=== PATIENT | female | born 1995 | race African-American/Black ===

== ENCOUNTER → 2023-09-04 08:24 | Outpatient (BNVA) | payer OTHER, SELFPAY | PROVIDERS: PCP Nurse Practitioner Family; Visit Provider Physician Assistant Surgical ==

== ENCOUNTER 2023-10-06 08:53 | Outpatient (AMB) | payer OTHER, SELFPAY ==
--- NOTE | 2023-10-05 20:25 | MHC.OFFVISWM ---
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 An additional 15 minutes were used at a different part of the day to complete this note and review patient's records. ?I spent 45 minutes speaking with the patient on the phone plus an additional 15 minutes reviewing and updating records for a total of 60 minutes HPI Comments History of Present Illness Details Previous weight loss efforts: Keto diet, Topamax Wakes up: 8.30am, Sleeps: 10pm Breakfast: 10.30am (oatmeal, eggs) Lunch: 12pm (fast food, or sandwich) Dinner: 6-7pm (protein, rice, beans) Snacks: 3pm (fruit or nuts) Exercise: Has a treadmill Fluids: Coffee: none, tea: green tea: one cup per day (plain), soda: none, juice: none, ETOH: none PFSH Medical History (Updated 10/06/23 @ 12:35 by Fabian Milton MD) Migraines Morbid obesity Physical Exam Vital Signs: BMI result Body Mass Index 50.4 Assessment & Plan Assessment & Plan (1) Morbid obesity: Code(s): E66.01 - Morbid (severe) obesity due to excess calories Plan: 1.? Plan for lap sleeve gastrectomy. If diaphragmatic or ventral hernias are present at time of surgery, these will be repaired laparoscopically as well. Risks and complications were discussed in detail including possible conversion to an open procedure, anastomotic leak, bleeding requiring transfusion, small bowel obstruction, , DVT and pulmonary embolism, cardiac, or pulmonary complications, as terminal operations manager complications such as anastomotic ulcer, insufficient weight loss and vitamin deficiencies. I emphasized the importance of close follow-up, adherence to instructions and good communication. 2. Nutritional counseling. Start with 2 CELEBRATE REBUILD protein (buy at [facility]) shakes (ONE scoop EACH in 8oz low fat unsweetened almond milk each) at 9am-11am and 12pm-2pm, 1 protein bar (CELEBRATE protein bars, buy at [facility] [employer] [facility]) at 3pm-5pm, dinner at 6pm (12 forks of protein and 12 forks of salad/vegetables) AND one more protein bar after dinner at 8pm-10pm. So you do 2 protein shakes, 2 protein bars and one meal per day. Meal to include lean meat (beef, fish, pork, turkey, chicken), or upper sorbian yogurt, or egg whites, or beans with a salad with olive oil and fruits (berries, pears, apples, kiwi). Avoid salt, breads, potatoes, rice, pasta, desserts. 3. Each shake would be drunk slowly, like coffee in a period of 2 hours. 4. Cut each bar in 4 pieces and eat each piece in 30min ?to make each bar last 2 hours. 5. I emphasized the importance of measuring accurately the food portion and measure it when serving the food in plate 6. The meal portions include 12 full-size forks of meat and 12 full-size forks of salad. You always eat the meat portion but you can replace up to 6 forks for salad/vegetables with rice, potatoes or pasta, or a fruit ?if you like. The less you do it the better weight loss will be. 7. One full-size fork is what it can be scooped on the fork without falling aside and not what can be bit with the fork. Use regular forks like those you find in a typical restaurant. 8.? Please send me weight measurements as soon as possible and then once a week. Always include your diet and exercise plan. 9. Start the home treadmill at a speed of 3.8. Goal is to burn 2000 calories per week on exercise, which means either 300 calories daily, or 400 calories 5 days per week, or 500 calories 4 days per week, or 650 calories 3 days per week. 10. Alternatively if you do the treadmill at the Gym, please start the treadmill with an incline of 2.0 and speed of 3.0. Increase incline by 1 every 3 min to a max incline of 8.0, stay 3min at 8.0 and then return to 2.0 and repeat same steps until calorie goal is met. Goal is to burn 2000 calories per week on exercise, which means either 300 calories daily, or 400 calories 5 days per week, or 500 calories 4 days per week, or 650 calories 3 days per week. 11.?It is important of avoiding and for at least 18 months postoperatively and has been discussed at the infosession. 12. Goal is to lose at least 1.5-2lbs per week 13. Goal to lose 10% of your weight before surgery, which is about 34lbs. Ultimate weight goal: 307lbs before surgery 14. Please follow the diet plan exactly without any change. If you don't like something about the plan or you feel hungry you need to communicate with me so I can help you revise the plan. You should not change the plan yourself. (2) Migraines: Code(s): G43.909 - Migraine, unspecified, not intractable, without status migrainosus Orders: Orders Lipid Panel 10/05/23 E66. - Morbid (severe) obesity due to excess calories Vitamin B12 and Folate 10/05/23 E66.01 - Morbid (severe) obesity due to excess calories Zinc 10/05/23 E66.01 - Morbid (severe) obesity due to excess calories Vitamin A 10/05/23 E66.01 - Morbid (severe) obesity due to excess calories C Reactive Protein 10/05/23 E66.01 - Morbid (severe) obesity due to excess calories Ferritin 10/05/23 E66.01 - Morbid (severe) obesity due to excess calories PTHI 10/05/23 E66.01 - Morbid (severe) obesity due to excess calories TSH reflex Free T4 10/05/23 E66.01 - Morbid (severe) obesity due to excess calories Vitamin D 25-OH Total 10/05/23 E66.01 - Morbid (severe) obesity due to excess calories Hemoglobin A1c 10/05/23 E66.01 - Morbid (severe) obesity due to excess calories US abdomen comp w elastography 10/05/23 E66.01 - Morbid (severe) obesity due to excess calories XR chest 2V 10/05/23 E66.01 - Morbid (severe) obesity due to excess calories FL upper GI w air 10/05/23 E66.01 - Morbid (severe) obesity due to excess calories Insulin 10/05/23 E66.01 - Morbid (severe) obesity due to excess calories IRON PROFILE 10/05/23 E66.01 - Morbid (severe) obesity due to excess calories Complete Blood Count Auto Diff 10/05/23 E66.01 - Morbid (severe) obesity due to excess calories Comprehensive Met. Panel 10/05/23 E66.01 - Morbid (severe) obesity due to excess calories Vitamin B1 10/05/23 E66.01 - Morbid (severe) obesity due to excess calories H Pylori Breath Test 10/05/23 E66.01 - Morbid (severe) obesity due to excess calories ECG 12 lead EKG 10/05/23 E66.01 - Morbid (severe) obesity due to excess calories Referrals Nutrition/Dietitian Referral E66.01 - Morbid (severe) obesity due to excess calories Behavioral Health Referral E66.01 - Morbid (severe) obesity due to excess calories Telehealth Telehealth Location of provider rendering services: practice address Location of patient: address on file Patient Identification confirmed using: Name, : Yes Telehealth method: voice only Patient verbally consented to treatment: Yes Patient verbally consented to billing insurance company: Yes Patient informed of any privacy concerns related to visit: Yes Minutes spent on Phone/Video with Pt.: 60 Coding Level of Care Code Tele New Pt Level 5 (08338) Diagnoses Morbid obesity E66.01 Migraines G43.909 Time Spent (min) 60
[2023-10-05 20:26] VITALS: BMI 50.4
[2023-10-05 20:32] VITALS: BMI 50.4
--- OUTSIDE RECORDS SUMMARY | 2023-10-06 08:57 | XMS_ITS | Continuity of Care Document ---
Author Name Unknown Organization [facility] Adult Address [address] [place] [address]- Care Team Providers Care Merchandise Processor Name Role Phone Roc Lincoln NP Primary Care Physician [facility]counter [facility] Date(s): 06/26/21 - 10/24/21 [facility] Adult [address] [place] [id number] Attending Physician: Roc Lincoln NP Allergies, Adverse Reactions, Alerts No Known Medication Allergies Immunizations Given and Recorded Vaccine Date Status Refusal Reason influenza virus vaccine, inactivated 12/26/18 Isidro rded tetanus/diphtheria/pertussis, acel(Tdap) 03/28/17 Given Measles/Mumps/Rubella Virus Vaccine 12/19/15 Recor ded Hepatitis B Vaccine (old term) 12/19/15 Recorded Problem List Condition Effective Dates Status Health Status Inform ant Impaired glucose tolerance(Confirmed) Active Morbid obesity with BMI of 4 0.0-44.9, adult(Confirmed) Active Obesity, unspecified(Confirmed) Active Prediabetes(Confirmed) Active Social History Social History Type Response Smoking Status Never smoker entered on: 03/27/16 Sex
--- OUTSIDE RECORDS SUMMARY | 2023-10-06 08:57 | XMS_ITS | Continuity of Care Document ---
Author Name Unknown Organization [facility] Adult Address [address] [place] [address]- Care Team Providers Care Tax Credit Leasing Consultant Name Role Phone Latonia JAQUEZ, Roc Sosa Primary Care Physician [facility] Date(s): 07/26/21 - 08/25/21 [facility] Adult [address] [place] [id number] Attending Physician: Von Blake Admitting Physician: Von Blake Referring Physician: AdmtrVon Allergies, Adverse Reactions, Alerts No Known Medication [...]
--- OUTSIDE RECORDS SUMMARY | 2023-10-06 08:57 | XMS_ITS | Continuity of Care Document ---
Author Name Unknown Organization [facility] Adult Address [address] [place] [address]- Care Team Providers Care Beef Cattle Specialist Name Role Phone Roc Lincoln NP Primary Care Physician [phone] [place] [facility] [place]23 - 09/27/23 [facility] Adult [address] [place] [address]- Allergies, Adverse Reactions, Alerts No Known Medication Allergies Immunizations Given and Recorded Vaccine Date Status Refusal Reason SARS-CoV-2 (COVID-19) mRNA-1273 vaccine 08/19/21 R ecorded SARS-CoV-2 (COVID-19) mRNA-1273 vaccine 07/14/21 R ecorded influenza virus vaccine, inactivated 12/26/18 Isidro rded influenza virus vaccine, inactivated 12/11/17 Isidro rded tetanus/diphtheria/pertussis, acel(Tdap) 03/28/17 Given Measles/Mumps/Rubella Virus Vaccine 12/19/15 Recor ded Hepatitis B Vaccine (old term) 12/19/15 Recorded Medications topiramate 50 mg oral tablet 1 tablet = 50 mg, By Mouth, 2 times a day, # 60 tablet, 5 Refills, Maintenance, 09/22/23 11:50:00 EST, Tablet, [id number], Partial fill upon patient request if the prescription is for a schedule II opioid drug., 175, cm, 08/11/23 12:45:00 EDT,... Start Date: 09/22/23 Status: Ordered Problem List Condition Confirmation Course Effective Dates Status Health St atus Informant Impaired glucose tolerance Confirmed Active Morbid obesity with BMI of 40.0-44.9, adult Confirmed Active Obesity, unspecified Confirmed Active Prediabetes Confirmed Active Social History Social History Type Response Smoking Status Never smoker entered on: 03/27/16 Sex Patient Care team information Care Team Personnel Name: Roc Lincoln NP Position: [facility] Associate Professional Member Role: PCP Address: Address: [address] [place] [id number]
--- OUTSIDE RECORDS SUMMARY | 2023-10-06 08:57 | XMS_ITS | Continuity of Care Document ---
Author Name Unknown Organization [facility] Adult Address [address] [place] [address]- Care Team Providers Care Styrene Dehydration Reactor Operator Name Role Phone Latonia JAQUEZ, Roc Sosa Primary Care Physician [facility] Date[facility]s): 09[facility]/21 - 10/24/21 [facility] [address] [place] [id number] Attending Physician: Von Blake Admitting Physician: Von [...]
--- OUTSIDE RECORDS SUMMARY | 2023-10-06 08:57 | XMS_ITS | Continuity of Care Document ---
Author Name Unknown Organization [facility] Adult Address [address] [place] [address]- Care Team Providers Care Sign Poster Name Role Phone Roc Lincoln NP Primary Care Physician Encounter [facility] Date(s): 03/21/21 - 03/28/21 [facility] Adult [address] [place] [id number]- Encounter Diagnosis Annual physical exam(Discharge Diagnosis) - 03/21/21 Morbid obesity with BMI of 40.0-44.9, adult(Discharge Diagnosis) - 03/21/21 Impaired glucose tolerance(Discharge Diagnosis) - 03/21/21 Attending Physician: Roc Lincoln NP Allergies, Adverse Reactions, Alerts No Known Medication Allergies Immunizations Given and Recorded Vaccine Date Status Refusal Reason influenza virus vaccine, inactivated 12/26/18 Isidro rded tetanus/diphtheria/pertussis, acel(Tdap) 03/28/17 Given Measles/Mumps/Rubella Virus Vaccine 12/19/15 Recor ded Hepatitis B Vaccine (old term) 12/19/15 Recorded Medications phentermine 37.5 mg oral tablet 1 tablet = 37.5 mg, By Mouth, Daily in AM, for 30 days, TAKE 1 TABLET BY MOUTH EVERY DAY BEFORE BREAKFAST, # 30 tablet, 0 Refills, Acute 04/20/21 11:26:00 EDT, 03/21/21 11:26:00 EDT, Tablet, [id number], Partial fill upon patient request if the... Start Date: 03/21/21 Stop Date: 04/20/21 Status: Ordered Problem List Condition Effective Dates Status Health Status Inform ant Impaired glucose tolerance(Confirmed) Active Morbid obesity with BMI of 4 0.0-44.9, adult(Confirmed) Active Obesity, unspecified(Confirmed) Active Prediabetes(Confirmed) Active Diagnosis Diagnosis Type Effective Dates Health Status [facility] Service Informant Annual physical exam Discharge Diagnosis 03/21/21 Morbid obesity with BMI of 40.0-44.9, adult Discharge Diagnosis 03/21/21 Impaired glucose tolerance Discharge Diagnosis 03/21/21 Vital Signs Most recent to oldest [Reference Range]: 1 Height 175 cm (03/21/21 10:49 AM) Weight 146.3 kg (03/21/21 10:49 AM) Oxygen Saturation [94-100 %] 100 % (03/21/21 10:49 AM) Pulse Rate [55-90 bpm] 120 bpm *H* (03/21/21 10:49 AM) Body Mass Index [18.5-24.99] 47.77 *>HHI* (03/21/21 10:49 AM) Blood Pressure [90-138/55-84 mm Hg] 129/ 85mm Hg (03/21/21 10:49 AM) Respiratory Rate [16-30 br/min] 18 br/mi n (03/21/21 10:49 AM) Mode of Delivery (Oxygen) Room air (03/21/21 10:49 AM) Blood pressure sites Arm, left (03/21/21 10:49 AM) Weight Obtained Via Standing scale (03/21/21 10:49 AM) Social History Social History Type Response Smoking Status Never smoker entered on: 03/27/16 Sex
--- OUTSIDE RECORDS SUMMARY | 2023-10-06 08:57 | XMS_ITS | Continuity of Care Document ---
Author Name Unknown Organization [facility] Adult Address [address] [phone]- Care Team Providers Care Dredge Mate Name Role Phone Latonia JAQUEZ, Roc Sosa Primary Care Physician [phone] [place] [facility] [place]s): 08/11/23 - 08/18/23 [facility] Adult [address] [place] [address]- Encounter Diagnosis Morbid obesity with BMI of 40.0-44.9, adult(Discharge Diagnosis) - 08/11/23 Attending Physician: Mary Jo Ochoa MD Referring Physician: Roc Lincoln NP Allergies, Adverse Reactions, [...] B Vaccine (old term) 12/19/15 Recorded Medications Wegovy (0.25 mg dose) subcutaneous solution = 0.25 mg, Subcutaneous Injection, Every week, for 4 week(s), in the abdomen, thigh, or upper arm, # 2 mL, 0 Refills, Acute 09/08/23 16:32:00 EDT, 08/11/23 16:32:00 EDT, Solution, [id number], Partial fill upon patient request if the p... Start Date: 08/11/23 Stop Date: 09/08/23 Status: Ordered Problem List Condition Confirmation Course Effective Dates Status Health St atus Informant Impaired glucose tolerance Confirmed Active Morbid obesity with BMI of 40.0-44.9, adult Confirmed Active Obesity, unspecified Confirmed Active Prediabetes Confirmed Active Diagnosis Diagnosis Type Effective Dates Health Status Cl inical Service Informant Morbid obesity with BMI of 40.0-44.9, adult Discharge Diagnosis 08/11/23 Vital Signs Most recent to oldest [Reference Range]: 1 Height 175 cm (08/11/23 12:45 PM) Social History Social History Type Response Smoking Status Never smoker entered on: 03/27/16 Sex Patient Care team information Care Team Personnel Name: Roc Lincoln NP Position: [facility] Associate Professional Member Role: PCP Address: Address: [address] [place] [address] [address] [place], [place] [address]
--- OUTSIDE RECORDS SUMMARY | 2023-10-06 08:57 | XMS_ITS | Continuity of Care Document ---
Author Name Unknown Organization [facility] Adult Address [address] [place] [address]- Care Team Providers Care Digital Account Executive Name Role Phone Roc Lincoln NP Primary Care Physician [phone] [facility]counter [facility] Date(s): 06/29/21 - 08/25/21 [facility] [address] [place] [id number] Attending Physician: Not on Staff, Attending MD Referring Physician: Roc Lincoln NP Allergies, [...]
--- OUTSIDE RECORDS SUMMARY | 2023-10-06 08:57 | XMS_ITS | Continuity of Care Document ---
Author Name Unknown Organization [facility] Adult Address [address] [place] [address]- Care Team Providers Care Electronic Gluer Name Role Phone Roc Lincoln NP Primary Care Physician [phone] Encounter [facility] Date(s): 08/29/23 - 09/28/23 [facility] Adult [address] [place] [address]- Allergies, Adverse Reactions, Alerts No Known Medication [...] Refills, Maintenance, 09/22/23 11:50:00 EST, Tablet, [id number], Partial fill upon patient request if the [...] Team Personnel Name: Roc Lincoln NP Position: [facility] Associate Professional Member Role: PCP Address: Address: [address] [place] [id number]
--- OUTSIDE RECORDS SUMMARY | 2023-10-06 08:57 | XMS_ITS | Continuity of Care Document ---
Author Name Unknown Organization [facility] Adult Address [address] [place] [address]- Care Team Providers Care Type Soldering Machine Tender Name Role Phone Roc Lincoln NP Primary Care Physician [phone] En[facility] Date(s): 08/29/23 - 09/28/23 [facility] Adult [address] [place] [address] Allergies, Adverse Reactions, Alerts No Known Medication [...] Refills, Maintenance, 09/22/23 11:50:00 EST, Tablet, [id number], Partial fill upon patient request if the [...] Team Personnel Name: Roc Lincoln NP Position: [facility] Associate Professional Member Role: PCP Address: Address: [address] [place] [id number]
--- OUTSIDE RECORDS SUMMARY | 2023-10-06 08:57 | XMS_ITS | Continuity of Care Document ---
Author Name Unknown Organization [facility] Adult Address [address] [place] [address]- Care Team Providers Care Parliamentary Archivist Name Role Phone Latonia JAQUEZ, Roc Sosa Primary Care Physician [facility] Date(s): 04/25/21 - 05/25/21 [facility] Adult [address] [place] [id number] Allergies, Adverse Reactions, Alerts No Known [...] BREAKFAST, # 30 tablet, 0 Refills, Acute 05/26/21 9:11:00 EDT, 04/26/21 9:11:00 EDT, Tablet, [id number], Partial fill upon patient request if the p... Start Date: 04/26/21 Stop Date: 05/26/21 Status: Ordered Problem List Condition Effective Dates Status Health Status Inform ant Impaired glucose tolerance(Confirmed) Active Morbid obesity with BMI of 4 0.0-44.9, adult(Confirmed) Active Obesity, unspecified(Confirmed) Active Prediabetes(Confirmed) Active Social History Social History Type Response Smoking Status Never smoker entered on: 03/27/16 Sex
--- OUTSIDE RECORDS SUMMARY | 2023-10-06 08:57 | XMS_ITS | Continuity of Care Document ---
Author Name Unknown Organization [facility] Adult Address [address] [place] [address]- Care Team Providers Care Plastic Surgeon Name Role Phone Latonia JAQUEZ, Roc Sosa Primary Care Physician [phone] Encounter [facility] Date(s): 06/21/21 - 07/21/21 [facility] Adult [address] [place] [id number] Allergies, Adverse Reactions, Alerts No Known Medication [...]
== END 2023-10-06 15:00 | disposition home or self-care (01) ==
LOC: HO.HBS 08:53
PROVIDERS: PCP Nurse Practitioner Family; Visit Provider Surgery
DX: E66.01 Morbid (severe) obesity due to excess calories (principal); Z68.43 Body mass index [BMI] 50.0-59.9, adult; G43.909 Migraine, unspecified, not intractable, without status migrainosus
CPT/HCPCS: 99443

== ENCOUNTER → 2023-10-06 08:53 | Outpatient (BNVA) | payer OTHER, SELFPAY | PROVIDERS: PCP Nurse Practitioner Family; Visit Provider Surgery | DX: E66.01 Morbid (severe) obesity due to excess calories (principal) ==

== ENCOUNTER 2023-10-07 09:23 | Outpatient (REF) | payer OTHER, SELFPAY ==
--- NOTE | ~2023-10-07 | XR_ITS ---
EXAMINATION: XR CHEST 2 VIEWS CLINICAL INFORMATION: Morbid obesity. COMPARISON: None. TECHNIQUE: Frontal and lateral views of the chest were obtained. FINDINGS: The heart, great vessels, pulmonary vasculature and mediastinum are normal. The lungs show no focal infiltrate, effusion or pneumothorax. There is no acute osseous abnormality. XR/XR chest 2V IMPRESSION: No active cardiopulmonary disease.
--- NOTE | 2023-10-07 09:33 | ECG_ITS ---
Test Reason : e66.01 Blood Pressure : / mmHG Vent. Rate : 100 BPM Atrial Rate : 100 BPM P-R Int : 132 ms QRS Dur : 082 ms QT Int : 346 ms P-R-T Axes : 056 060 016 degrees QTc Int : 446 ms Sinus tachycardia Normal ECG No previous ECGs available Referred By: Fabian Milton Electronically Signed By:TITA ZAMARRIPA MD
[2023-10-07 09:47] LABS: MANUAL DIFF FLAG NO
[2023-10-07 10:41] LABS: Basophils Absolute Auto 0.1 X10*3/uL (0.0-0.2); Basophils Percent Auto 0.5 % (0-2); Eosinophils Absolute Auto 0.1 X10*3/uL (0.0-0.4); Eosinophils Percent Auto 0.5 % (0-4); Hematocrit 39.9 % (37.0-47.0); Hemoglobin 13.2 g/dl (12.0-16.0); Imm Gran Abs Auto 0.05 X10*3/uL (0.00-0.03); Imm Gran Pct Auto 0.4 % (0.0-0.4); Lymphocytes Absolute Auto 3.8 X10*3/uL (1.2-4.9); Lymphocytes Percent Auto 29.2 % (20-40); Mean Corpuscular HGB Conc 33.1 g/dl (31.0-35.0); Mean Corpuscular Hemoglobin 27.7 pg (27.0-33.0); Mean Corpuscular Volume 83.8 fL (80.0-98.0); Mean Platelet Volume 10.1 fL (9.4-12.3); Monocytes Absolute Auto 0.8 X10*3/uL (0.1-1.2); Monocytes Percent Auto 5.9 % (2-11); Neutrophils Absolute Auto 8.2 x10*3/uL (2.0-8.3); Neutrophils Percent Auto 63.5 % (45-73); Platelet Count 429 X10*3/uL (160-400); Red Blood Count 4.76 X10*6/uL (4.20-5.50); Red Cell Distribution Width 14.2 % (11.0-16.0); White Blood Count 12.9 X10*3/uL (4.8-10.8)
[2023-10-07 10:47] LABS: Estimated Average Glucose 120 mg/dL; Hemoglobin A1c % 5.8 % (<6.0)
[2023-10-07 11:17] LABS: Alanine Aminotransferase 29 U/L (0-31); Albumin Level 4.4 g/dL (3.5-5.0); Alkaline Phosphatase 64 U/L (39-117); Anion Gap 12 (12-20); Aspartate Amino Transferase 22 U/L (5-31); Bilirubin Total 0.5 mg/dL (0.0-1.0); Blood Urea Nitrogen 7 mg/dL (9-16); C Reactive Protein 0.38 mg/dL (< or = 0.50); Calcium 9.6 mg/dL (8.4-10.2); Carbon Dioxide 26 mmol/L (22-29); Chloride 107 mmol/L (96-108); Cholesterol 120 mg/dL (<200); Estimated Glomerular Filt Rate > 60; Glucose Random 111 mg/dL (60-115); HDL Cholesterol 37 mg/dL (>40); Iron 100 mcg/dL (30-160); LDL Cholesterol Calculated 70 mg/dL (<100); Percent Iron Saturation 32 % (15-50); Potassium 3.9 mmol/L (3.3-5.1); Sodium 141 mmol/L (135-145); Total Iron Binding Capacity 311 mcg/dL (228-428); Total Protein 7.6 g/dL (6.5-8.0); Triglycerides 68 mg/dL (<150); Unsaturated Iron Binding 211 ug/dL
[2023-10-07 11:26] LABS: Ferritin 122 ng/mL (10-122); Insulin 27 uU/mL (2-29); TSH reflex Free T4 0.56 uIU/mL (0.32-4.0); Vitamin D 25-OH Total 35.7 ng/mL (>30)
[2023-10-07 11:35] LABS: Folate 7.2 ng/mL (> or = 4.0); Vitamin B12 1702 pg/mL (200-900)
[2023-10-08 15:54] LABS: Calcium (PTHI) 9.8 mg/dL (8.6-10.2); PTHI 14 pg/mL (16-77)
[2023-10-10 16:57] LABS: Zinc 100 mcg/dL (60-130)
[2023-10-11 15:19] LABS: Vitamin B1 13 nmol/L (8-30)
[2023-10-13 10:28] LABS: Vitamin A 51 mcg/dL (38-98)
== END 2023-10-07 09:24 | disposition home or self-care (01) ==
LOC: HO.XRAY 09:23
PROVIDERS: PCP Nurse Practitioner Family; Visit Provider Surgery
DX: E66.01 Morbid (severe) obesity due to excess calories (principal)
CPT/HCPCS: 36415; 71046; 80053; 80061; 82306; 82607; 82728; 82746; 83036; 83525; 83540; 83970; 84425; 84443; 84590; 84630; 85025; 86140; 93005

== ENCOUNTER 2023-10-20 08:16 | Outpatient (AMB) | payer OTHER, SELFPAY ==
--- NOTE | 2023-10-20 10:52 | A.OFFVIS_ITS ---
Intake VS Expanded 10/20/23 11:06 Height 5 ft 9 in Weight 332 lb 6 oz BMI 49.1 Body Fat % 65.4 Body Fat Mass 217.5 Fat Free Mass 115.2 Visceral Fat Rating 29 Body Water % 23.7 Body Water Mass 78.8 Basal Metabolic Rate/Score 1,511 Intake Visit Reasons: TV Follow Up SWL - 1ST Allergies No Known Allergies Allergy (Verified 10/06/23 12:34) HPI TV Follow Up SWL - 1ST HPI Details Start time: 11.00am, End time: 11.30am ?I spent 25 minutes speaking with the patient on the phone plus an additional 5 minutes reviewing and updating records for a total of 30 minutes HPI Comments History of Present Illness Details Overall weight loss: 8.8lbs, or 2.6% TBWL Is doing 2 Celebrate Rebuild protein shakes (1 scoop each in 8oz almond milk), 2 Celebrate protein bars and one meal Exercise: doing treadmill x3/wk for 450 calories [facility] Medical History (Updated 10/06/23 @ 12:35 by Fabian Milton MD) Migraines Morbid obesity Physical Exam Vital Signs: BMI result Body Mass Index 49.1 Assessment & Plan Assessment & Plan (1) Morbid obesity: Code(s): E66.01 - Morbid (severe) obesity due to excess calories Plan: 1. Continue same nutritional plan of 2 Celebrate Rebuild protein shakes (1 scoop each in 8oz almond milk), 2 Celebrate protein bars and one meal 2. Please make sure you measure the food portions of both the protein and salad portion of your meal 3. Exercise: increase treadmill to daily at a speed of 4mph for 300 calories. Goal is to burn 2000 calories per week on exercise, which means either 300 calories daily, or 400 calories 5 days per week, or 500 calories 4 days per week, or 650 calories 3 days per week. 4. Continue to send me weight measurements weekly on 5. To be scheduled for EGD due to history of GERD. The possibility of biopsies was discussed. Patient needs to avoid use of NSAIDs and aspirin for 1 week prior to EGD. Risks of perforation and? bleeding was discussed with the patient. This will be an outpatient procedure with IV sedation. Telehealth Telehealth Location of provider rendering services: practice address Location of patient: address on file Patient Identification confirmed using: Name, : Yes Telehealth method: voice only Patient verbally consented to treatment: Yes Patient verbally consented to billing insurance company: Yes Patient informed of any privacy concerns related to visit: Yes Minutes spent on Phone/Video with Pt.: 30 Coding Level of Care Code Tele Est Pt Level 4 (83397) Diagnoses Morbid obesity E66.01 Time Spent (min) 30
[2023-10-20 11:06] VITALS: BMI 49.1
== END 2023-10-20 11:48 | disposition home or self-care (01) ==
LOC: HO.HBS 08:16
PROVIDERS: PCP Nurse Practitioner Family; Visit Provider Surgery
DX: E66.01 Morbid (severe) obesity due to excess calories (principal); Z68.42 Body mass index [BMI] 45.0-49.9, adult
CPT/HCPCS: 99443

== ENCOUNTER → 2023-10-20 08:16 | Outpatient (BNVA) | payer OTHER, SELFPAY | PROVIDERS: PCP Nurse Practitioner Family; Visit Provider Surgery ==

== ENCOUNTER 2023-10-27 | Outpatient (REF) | payer OTHER, SELFPAY ==
[2023-10-30 15:28] LABS: H Pylori Breath Test Negative (Negative)
== END 2023-10-27 00:01 | disposition home or self-care (01) ==
LOC: HO.LNP
PROVIDERS: Visit Provider Surgery
DX: E66.01 Morbid (severe) obesity due to excess calories (principal)
CPT/HCPCS: 83013

== ENCOUNTER → 2023-10-27 12:57 | Outpatient (BNVA) | payer OTHER, SELFPAY | PROVIDERS: PCP Nurse Practitioner Family; Visit Provider Physician Assistant Surgical | DX: Z11.0 Encounter for screening for intestinal infectious diseases (principal) | CPT/HCPCS: 99211 ==

== ENCOUNTER 2023-10-28 10:11 | Outpatient (AMB) | payer OTHER, SELFPAY ==
--- NOTE | 2023-10-28 10:06 | MHC.AMNUTRGE ---
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 Identifies triggers as emotional eating, mainly stress. she recognizes the importance of working on problem areas before surgery. Exercise: 3-4x per week for 45 minutes, walking treadmill Jakub classed: completes and reviewed Patient shares she will be traveling to [place] in January, surgeon aware Previous weight loss methods attempted lost 100lbs+ in 6 months. Dietary counseling reduction Who buys your food self Who prepares/cooks your food self Meal frequency regular: breakfast (eggs, feng ), lunch (chicken, salmon rice and beans), dinner (take out) and snacks (fruits, nuts, chocolate ) Lifestyle Eating out 1-3 times/week Food frequency Meats/poultry/fish (protein): daily ( a lot of feng and seafood ), Water: daily, Soda: never, Juice: never and Coffee: daily Diagnosis Nutrition problem #1 overweight/obesity As related to (etiology) #1 excess energy intake and physical inactivity As evidenced by (sign/symptom) #1 high BMI Monitoring/Goals Nutrition problem monitoring total energy intake, level of knowledge/skill, total PRO intake and weight Outcome progress progressing Learning/Education Readiness to learn excellent Stages of change action Educational materials provided Yes Most Recent Diabetes Results: Cholesterol 120 mg/dL (<200) 10/07/23 HDL Cholesterol 37 mg/dL (>40) L 10/07/23 Triglycerides 68 mg/dL (<150) 10/07/23 Creatinine 0.85 mg/dL (0.5-1.4) 10/07/23 Blood Urea Nitrogen 7 mg/dL (9-16) L 10/07/23 Sodium 141 mmol/L (135-145) 10/07/23 Potassium 3.9 mmol/L (3.3-5.1) 10/07/23 Chloride 107 mmol/L (96-108) 10/07/23 Carbon Dioxide 26 mmol/L (22-29) 10/07/23 Calcium 9.6 mg/dL (8.4-10.2) 10/07/23 AST 22 U/L (5-31) 10/07/23 ALT 29 U/L (0-31) 10/07/23 Total Protein 7.6 g/dL (6.5-8.0) 10/07/23 Albumin 4.4 g/dL (3.5-5.0) 10/07/23 [facility] Medical History (Updated 10/06/23 @ 12:35 by Fabian Milton MD) Migraines Morbid obesity Assessment & Plan Assessment & Plan (1) Morbid obesity: Code(s): E66.01 - Morbid (severe) obesity due to excess calories Plan Patient is cleared from a nutrition standpoint for bariatric surgery. Educational requirements have been completed. Reviewed vitamin supplementation and commitment to protein shake for several months post surgery. Encouraged communication with office as needed Telehealth Telehealth Location of provider rendering services: practice address Location of patient: address on file Patient Identification confirmed using: Name, : Yes Telehealth method: video Patient verbally consented to treatment: Yes Patient verbally consented to billing insurance company: Yes Patient informed of any privacy concerns related to visit: Yes Minutes spent on Phone/Video with Pt.: 20 Coding Level of Care Code Nutr Indiv Intake (04496) Diagnoses Morbid obesity E66.01 Time Spent (min) 20
[2023-10-28 10:24] VITALS: BMI 48.4
== END 2023-10-28 10:23 | disposition home or self-care (01) ==
LOC: HO.HBS 10:11
PROVIDERS: PCP Nurse Practitioner Family; Visit Provider Dietitian, Registered
DX: E66.01 Morbid (severe) obesity due to excess calories (principal)

== ENCOUNTER → 2023-10-28 10:11 | Outpatient (BNVA) | payer OTHER, SELFPAY | PROVIDERS: PCP Nurse Practitioner Family; Visit Provider Dietitian, Registered | DX: E66.01 Morbid (severe) obesity due to excess calories (principal); Z68.42 Body mass index [BMI] 45.0-49.9, adult; Z71.3 Dietary counseling and surveillance | CPT/HCPCS: 97802 ==

== ENCOUNTER 2023-11-05 08:09 | Outpatient (AMB) | payer OTHER, SELFPAY ==
--- NOTE | 2023-11-05 12:01 | A.OFFVIS_ITS ---
Intake VS Expanded 11/05/23 12:15 Height 5 ft 9 in Weight 327 lb 8 oz BMI 48.4 Body Fat % 64.3 Body Fat Mass 210.7 Fat Free Mass 117 Visceral Fat Rating 29 Body Water % 24.5 Body Water Mass 80.3 Basal Metabolic Rate/Score 1,496 Intake Visit Reasons: TV Follow Up SWL Allergies No Known Allergies Allergy (Verified 10/06/23 12:34) HPI TV Follow Up SWL HPI Details Start time: 11.55am, End time: 12.22pm ?I spent 22 minutes speaking with the patient on the phone plus an additional 5 minutes reviewing and updating records for a total of 27 minutes HPI Comments History of Present Illness Details Previous weight loss: 13.6lbs, or 3.98% TBWL Is doing 2 Celebrate Rebuild protein shakes (1 scoop each in 8oz almond milk), 2 Celebrate protein bars and one meal (6 forks protein and 6 forks of salad/vegetables) Exercise: is doing home treadmill 4 days per week for 600 calories (speed: 4.5 for 45min) [facility] Medical History (Updated 10/06/23 @ 12:35 by Fabian Milton MD) Migraines Morbid obesity Assessment & Plan Assessment & Plan (1) Morbid obesity: Code(s): E66.01 - Morbid (severe) obesity due to excess calories Plan: 1. Continue same nutritional plan of 2 Celebrate Rebuild protein shakes (1 scoop each in 8oz almond milk), 2 Celebrate protein bars and one meal (6 forks protein and 6 forks of salad/vegetables) 2. Only if you feel hungry, you can increase the food portions of your meal to up to 12 forks each 3. Exercise: continue home treadmill 4 days per week for 600 calories (speed: 4.5 for 45min). Please try to add a 5th day in which you exercise on the treadmil for 30 minutes 4. Continue to send me weight measurements weekly on Telehealth Telehealth Location of provider rendering services: practice address Location of patient: address on file Patient Identification confirmed using: Name, : Yes Telehealth method: voice only Patient verbally consented to treatment: Yes Patient verbally consented to billing insurance company: Yes Patient informed of any privacy concerns related to visit: Yes Minutes spent on Phone/Video with Pt.: 27 Coding Level of Care Code Tele Est Pt Level 3 (25230) Diagnoses Morbid obesity E66.01 Time Spent (min) 27
[2023-11-05 12:15] VITALS: BMI 48.4
== END 2023-11-05 12:23 | disposition home or self-care (01) ==
LOC: HO.HBS 08:09
PROVIDERS: PCP Nurse Practitioner Family; Visit Provider Surgery
DX: E66.01 Morbid (severe) obesity due to excess calories (principal); Z68.42 Body mass index [BMI] 45.0-49.9, adult
CPT/HCPCS: 99443

== ENCOUNTER → 2023-11-05 08:09 | Outpatient (BNVA) | payer OTHER, SELFPAY | PROVIDERS: PCP Nurse Practitioner Family; Visit Provider Surgery ==

== ENCOUNTER 2023-11-11 09:21 | Outpatient (REF) | payer OTHER, SELFPAY ==
--- NOTE | ~2023-11-11 | US_ITS ---
EXAMINATION: US COMPLETE ABDOMEN WITH LIVER ELASTOGRAPHY CLINICAL INFORMATION: Morbid obesity. COMPARISON: None available. TECHNIQUE: Real-time imaging of the abdominal viscera. Noninvasive ultrasound liver fibrosis assessment is performed using Haritha ElastPQ point quantification shear wave elastography (2D-SWE) with a C5-2 MHz transducer. Multiple elastography samples are obtained. FINDINGS: PANCREAS: Normal. The visualized pancreatic head and body are normal in appearance. The remainder of the pancreas is obscured from visualization by the overlying bowel gas. ABDOMINAL AORTA: The proximal, middle, and distal aortic segments are normal in caliber. INFERIOR VENA CAVA: Visualized portions are normal. LIVER: The liver demonstrates normal size, contour and increased echogenicity. No focal lesion or intrahepatic biliary duct dilatation. The right lobe measures 12.0 cm in length. The left lobe measures 11.8 cm in length. Portal flow is towards the liver (hepatopetal). Shear wave liver elastography median stiffness is 1.83 m/s (reference: normal median stiffness is 1.3 m/s or less). IQR/median stiffness to assess sampling precision is 0.08 (reference: good quality data set is IQR/median stiffness of 0.15 or less). GALLBLADDER: There are gallstones, without sludge, polyps, wall thickening or pericholecystic fluid. COMMON BILE DUCT: Normal in caliber measuring 0.4 cm in diameter. RIGHT KIDNEY: Normal. No hydronephrosis. No renal calculi or focal parenchymal lesions. The kidney measures 12.5 cm in maximum dimension. LEFT KIDNEY: At the upper pole, a 9 mm benign, simple cyst is seen, for which no imaging follow-up is recommended. No hydronephrosis. No renal calculi or focal parenchymal lesions. The kidney measures 11.5 cm in maximum dimension. SPLEEN: Normal. The spleen measures 9.6 cm in maximum dimension. FREE FLUID: None. US/US abdomen comp w elastography IMPRESSION: 1. There is generalized increase in hepatic echotexture, consistent with fatty infiltration or hepatocellular disease. Please correlate clinically. No focal hepatic mass or intrahepatic biliary dilatation is seen. 2. Liver elastography: Measurements are suggestive of compensated advanced chronic liver disease but need further test for confirmation. 3. There is cholelithiasis. 4. Technically limited ultrasound examination of the pancreatic tail. REFERENCE: Society of Radiologists in Ultrasound Liver Stiffness Thresholds (2020): LIVER STIFFNESS THRESHOLDS: *Liver Stiffness equal or less than 1.3 m/s: High probability of being normal. *Liver Stiffness less than 1.7 m/s: In the absence of other known clinical signs, rules out compensated advanced chronic liver disease. *Liver Stiffness 1.7-2.1 m/s: Suggestive of compensated advanced chronic liver disease but need further test for confirmation. *Liver Stiffness over 2.1 m/s: Rules in compensated advanced chronic liver disease. *Liver Stiffness over 2.4 m/s: Suggestive of clinically significant portal hypertension. QUALITY OF DATA SET: *IQR/Median value equal or less than 0.15 implies a quality data set. *IQR/Median value over 0.15 implies a poor quality data set. SIGNIFICANT CHANGE FROM PRIOR EXAM: Significant change if liver stiffness measurement is 10% or greater from prior exam. OTHER CONSIDERATIONS: The stage of liver fibrosis may be overestimated in the setting of acute hepatitis, liver inflammation, elevated liver function tests, hepatic vascular congestion, obstructive cholestasis, non-fasting state, and infiltrative diseases such as amyloidosis and lymphoma. In some patients with NAFLD, the liver stiffness thresholds for compensated advanced chronic liver disease may be lower. In causes other than viral hepatitis and NAFLD, liver stiffness thresholds are not well established.
== END 2023-11-11 09:22 | disposition home or self-care (01) ==
LOC: HO.US 09:21
PROVIDERS: PCP Nurse Practitioner Family; Visit Provider Surgery
DX: E66.01 Morbid (severe) obesity due to excess calories (principal)
CPT/HCPCS: 76705; 76981

== ENCOUNTER 2023-11-18 13:39 | Outpatient (AMB) | payer OTHER, SELFPAY ==
--- NOTE | 2023-11-18 12:32 | MHC.WMTHER ---
Intake Intake Visit Reasons: VIDEO Intake Allergies No Known Allergies Allergy (Verified 10/06/23 12:34) [facility] Medical History (Updated 11/18/23 @ 13:00 by Victoria Pham) Migraines Morbid obesity Behavioral Health Assessment Weight Management Therapy Therapy Notes Details Pt is looking to have weight loss surgery to help improve her health and quality of life. She is not currently in therapy however was in the past. She feels like she needs more balance and was feeling herself spiraling . She reported high stress job. Pt reported no history of problems with drugs or alcohol, no psychiatric admissions, no hx of eating disorder diagnosis, no legal issues. Presenting Concerns Referral Source provider Reason for referral weight loss surgery evaluation Precipitating Event obesity Living Situation Current Living Situation Own At risk of losing current housing? No Satisfied with current living situation? Yes Comments Pt lives alone. Food/Weight/Diet Expectations of change weight loss and maintenance History/Relationship with food Pt reported sometimes she would binge eat . She would not eat all day and then eat large amount of food a night. History/Relationship with weight Pt reported being overweight her whole life. weighed around 210lbs in high school. History/Relationship with dieting [facility] in 2018 lost 100lbs (did not want to have surgery at this time) got down to around 220lbs. Then she got very stressed with her family moving into her one bedroom apartment. and then slowly gained all the weight back. Binge Eating Do you frequently eat large amounts of food in short periods of time, not feeling physically hungry? No Do you feel out of control when you eat a large amount of food in a short period of time? No Do you eat large amounts of food rapidly and typically alone? No Night Eating Do you wake up at least once during the night to eat? No If you wake up in the night, do you find that it is necessary to eat something in order to fall back asleep? No Do you have little or no appetite in the morning and feel very hungry in the evening, often overeating between dinner and when you go to bed? Yes Social History Family history and relationship Pt was born and raised in [place], [place] by both her parents and one sister. Her father has 26 other children. Pt stated that her mother was overweight. Pt is single and has no children. 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 none Education Preferred learning style Auditory, Verbal, Written, Learn by doing and Visual Currently enrolled in educational program? No Interested in further educational program? 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 No Meaningful activities traveling Financial Situation Describe current financial situation Comfortable Financial assistance? None Service Service? No Mental Health and Addiction Treatment Current/Past substance abuse? No Current/Past addictive behavior concerns? No Medical and Physical Health Summary Physical exam in the last year? Yes Pain Screening Current pain? No Pain in the last few months? No Medications Is the patient compliant with medications? Yes Does the patient have Burch Guardian in place? Not applicable Does the patient use complimentary health approaches? No Trauma/Abuse History History of trauma? No Questionnaires PHQ-9 Over the last 2 weeks, how often have you been bothered by any of the following problems? 1. Little interest or pleasure in doing things: not at all 2. Feeling down, depressed, or hopeless: not at all 3. Trouble falling or staying asleep, or sleeping too much: not at all 4. Feeling tired or having little energy: not at all 5. Poor appetite or overeating: not at all 6. Feeling bad about yourself - or that you are a failure or have let yourself or your family down: not at all 7. Trouble concentrating on things, such as reading the newspaper or watching television: not at all 8. Moving or speaking so slowly that other people could have noticed. Or the opposite - being so fidgety or restless that you have been moving around a lot more than usual: not at all 9. Thoughts that you would be better off or of hurting yourself in some way: not at all Total score: 0 Depression Screening Interpretation: Negative Depression Screening Done: Yes Source: Developed by Drs. Brett Todd, Charlotte Velez, Basil Alvarenga and colleagues, with an educational corrie from [employer]. Binge Eating Scale Group 1 A. I don't feel self-conscious about my wt. or body size when I'm with others. B. I feel concerned about how I look to others, but it normally does not make me fell disappointed with myself C. I do get self-conscious about my appearance and wt. which makes me feel disappointed in myself. D. I feel very self-conscious about my wt. and frequently I feel intense shame and disgust for myself. I try to avoid social contacts because of my self-consciousness. Response Group 1: B Group 2 A. I don't have any difficulty eating slowly in the proper manner. B. Although I seem to gobble down foods, I don't end up feeling stuffed because of eating to much. C. At times, I tend to eat quickly and then, I feel uncomfortably full afterwards. D. I have the habit of bolting down my food, without really chewing it. When this happens I usually feel uncomfortably stuffed because I've eaten to much. Response Group 2: A Group 3 A. I feel capable to control my eating urges when I want to. B. I feel like I have failed to control my eating more than the average person. C. I feel utterly helpless when it comes to feeling in control of my eating urges. D. Because I feel so helpless about controlling my eating I have become very desperate about trying to get control. Response Group 3: B Group 4 A. I don't have the habit of eating when I'm bored. B. I sometimes eat when I'm bored, but often I'm able to get busy and get my mind off food. C. I have a regular habit of eating when I'm bored, but occasionally, I can use some other activity to get my mind off eating. D. I have a strong habit of eating when I'm bored. Nothing seems to help me breath the habit. Response Group 4: B Group 5 A. I'm usually physically hungry when I eat something. B. Occasionally, I eat something on impulse even though I really am not hungry. C. I have the regular habit of eating foods, that I might not really enjoy, to satisfy a hungry feeling even though physically, I don't need the food. D. Although I'm not physically hungry, I get a hungry feeling in my mouth that only seems to be satisfied when I eat a food, like sandwich, that fills my mouth. Sometimes, when I eat the food to satisfy my mouth hunger, I then spit the food out so I won't gain weight. Response Group 5: B Group 6 A. I don't feel any guilt or self-hate after I overeat. B. After I overeat, occasionally I feel guilt or self-hate. C. Almost all the time I experience strong guilt or self-hate after I overeat. Response Group 6: A Group 7 A. I don't lose total control of my eating when dieting even after periods when I overeat. B. Sometimes when I eat a forbidden food on a diet, I feel like I blew it and eat even more. C. Frequently, I have the habit of saying to myself, I've blown it now, why not go all the way, when I overeat on a diet. When that happens I eat more. D. I have a regular habit of starting a strict diets for myself but I break the diets by going on an eating binge. My life seems to be either a feast or famine. Response Group 7: A Group 8 A. I rarely eat so much food that I feel uncomfortably stuffed afterwards. B. Usually about once a month, I each such a quantity of food, I end up feeling very stuffed. C. I have regular periods during the month when I eat large amounts of food, either at mealtime or at snacks. D. I eat so much food that I regularly feel quite uncomfortable after eating and sometimes a bit nauseous. Response Group 8: B Group 9 A. My level of calorie intake does not go up very high or go down very low on a regular basis. B. Sometimes after I overeat, I will try to reduce my caloric intake to almost nothing to compensate for the excess calories I've eaten. C. I have a regular habit of overeating during the night. It seems that my routine is not to be hungry in the morning but overeat in the evening. D. In my adult years, I have had week-long periods where I practically starve myself. This follows periods when I overeat. It seems I live a life of either feast or famine. Response Group 9: C Group 10 A. I usually am able to stop eating when I want to. I know when enough is enough. B. Every so often, I experience a compulsion to eat which I can't seem to control. C. Frequently, I experience strong urges to eat which I seem unable to control, but at other times I can control my eating urges. D. I feel incapable of controlling urges to eat. I have a fear of not being able to stop eating voluntarily. Response Group 10: B Group 11 A. I don't have any problem stopping eating when I feel full. B. I usually can stop eating when I feel full but occasionally overeat leaving me feeling uncomfortably stuffed. C. I have a problem stopping eating once I start and usually I feel uncomfortably stuffed after I eat a meal. D. Because I have a problem not being able to stop eating when I want, I sometimes have to induce vomiting to relieve my stuffed feeling. Response Group 11: B Group 12 A. I seem to eat just as much when I'm with others, Family social gatherings as when I'm by myself. B. Sometimes, when I'm with other persons, I don't eat as much as I want to eat because I'm self-conscious about my eating. C. Frequently, I eat only a small amount of food when others are present, because I'm very embarrassed about my eating. D. I feel so ashamed about overeating that I pick times to overeat when I know no one will see me. I feel like a closet eater. Response Group 12: A Group 13 A. I eat three meals a day with only an occasional between meal snack. B. I eat 3 meals a day, but I also normally snack between meals. C. When I am snacking heavily, I get in the habit of skipping regular meals. D. There are regular periods when I seem to be continually eating, with no planned meals. Response Group 13: B Group 14 A. I don't think much about trying to control unwanted eating urges. B. At least some of the time, I feel my thoughts are pre-occupied with trying to control my eating urges. C. I feel that frequently I spend much time thinking about how much I ate or about trying not to eat anymore. D. It seems to me that most of my waking hours are pre-occupied by thoughts about eating or not eating. I feel like I'm constantly struggling not to eat. Response Group 14: A Group 15 A. I don't think about food a great deal. B. I have strong craving for food but they last only for brief periods of time. C. I have days when I can't seem to think about anything else but food. D. Most of my days seem to be pre-occupied with thoughts about food. I feel like I live to eat. Response Group 15: B Group 16 A. I usually know whether or not I'm physically hungry. I take the right portion of food to satisfy me. B. Occasionally, I feel uncertain about knowing whether or not I'm physically hungry. A these times it's hard to know how much food I should take to satisfy me. C. Even though I might know how many calories I should eat, I don't have any idea what is a normal amount of food for me. Response Group 16: B Binge Eating Score: 12 Score less than 17 Minimal Risk Score between 18-26 Moderate Risk Score between 27-46 High Risk Assessment & Plan Assessment & Plan (1) Unspecified episodic mood disorder: Code(s): F39 - Unspecified mood [affective] disorder (2) Morbid obesity: Code(s): E66.01 - Morbid (severe) obesity due to excess calories Plan We discussed surgery and she says she is open to it however is also fearful of it. She has no history of any mental health issues and is doing well in the program. She is cleared for surgery when ready. Telehealth Telehealth Location of provider rendering services: other Location of patient: address on file Patient Identification confirmed using: Name, : Yes Telehealth method: voice only Patient verbally consented to treatment: Yes Patient verbally consented to billing insurance company: Yes Patient informed of any privacy concerns related to visit: Yes Minutes spent on Phone/Video with Pt.: 45 Coding Level of Care Code Tele Psy Diag Eval (12536) Diagnoses Unspecified episodic mood disorder F39 Morbid obesity E66.01 Time Spent (min) 45
== END 2023-11-18 17:07 | disposition home or self-care (01) ==
LOC: HO.HBST 13:39
PROVIDERS: PCP Nurse Practitioner Family; Visit Provider Counselor Mental Health
DX: F39 Unspecified mood [affective] disorder (principal); E66.01 Morbid (severe) obesity due to excess calories
CPT/HCPCS: 90791

== ENCOUNTER → 2023-11-18 13:39 | Outpatient (BNVA) | payer OTHER, SELFPAY | PROVIDERS: PCP Nurse Practitioner Family; Visit Provider Counselor Mental Health | DX: F39 Unspecified mood [affective] disorder (principal); E66.01 Morbid (severe) obesity due to excess calories ==

== ENCOUNTER 2023-11-28 08:17 | Outpatient (AMB) | payer OTHER, SELFPAY ==
--- NOTE | 2023-11-28 12:19 | MHC.OFFVISWM ---
Intake VS Expanded 11/28/23 12:28 Height 5 ft 9 in Weight 320 lb 4 oz BMI 47.3 Body Fat % 62.5 Body Fat Mass 200.2 Fat Free Mass 120.2 Visceral Fat Rating 28 Body Water % 25.7 Body Water Mass 82.3 Basal Metabolic Rate/Score 1,527 Intake Visit Reasons: TV Follow Up SWL Allergies No Known Allergies Allergy (Verified 10/06/23 12:34) HPI TV Follow Up SWL HPI Details Start time: 12.14pm, End time: 12.34pm ?I spent 15 minutes speaking with the patient on the phone plus an additional 5 minutes reviewing and updating records for a total of 20 minutes HPI Comments History of Present Illness Details Overall weight loss: 21 lbs, or 6.15% TBWL Is doing 2 Celebrate Rebuild protein shakes (1 scoop in 8oz almond milk), 2 Celebrate protein bars and a meal (6 forks of protein or 6 forks of vegetables) Exercise: is doing treadmill x4 days per week for 600 calories [facility] Medical History (Updated 11/18/23 @ 13:00 by Victoria Pham) Migraines Morbid obesity Assessment & Plan Assessment & Plan (1) Morbid obesity: Code(s): E66.01 - Morbid (severe) obesity due to excess calories Plan: 1. Plan for lap sleeve gastrectomy including upper GI endoscopy. All tests has been completed and reviewed and the patient is cleared for the surgery. ?If diaphragmatic or ventral hernias are present at time of surgery, these will be repaired laparoscopically as well. Risks and complications were discussed in detail including possible conversion to an open procedure, anastomotic leak, bleeding requiring transfusion, small bowel obstruction, , DVT and pulmonary embolism, cardiac, or pulmonary complications, as [facility] complications such as anastomotic ulcer, insufficient weight loss and vitamin deficiencies. I emphasized the importance of close follow-up, adherence to instructions and good communication. So far she has proven to be an excellent communicator and very compliant with all our directions accomplishing a great weight loss. I believe that she is an excellent candidate and she is ready. 2. Continue present nutritional plan of 2 Celebrate Rebuild protein shakes (1 scoop in 8oz almond milk), 2 Celebrate protein bars and a meal (6 forks of protein or 6 forks of vegetables) 3. Exercise: continue treadmill x4 days per week for 600 calories 4. Continue to send me weight measurements weekly on Telehealth Telehealth Location of provider rendering services: practice address Location of patient: address on file Patient Identification confirmed using: Name, : Yes Telehealth method: voice only Patient verbally consented to treatment: Yes Patient verbally consented to billing insurance company: Yes Patient informed of any privacy concerns related to visit: Yes Minutes spent on Phone/Video with Pt.: 20 Coding Level of Care Code Tele Est Pt Level 3 (74010) Diagnoses Morbid obesity E66.01 Time Spent (min) 20
[2023-11-28 12:28] VITALS: BMI 47.3
== END 2023-11-28 12:34 | disposition home or self-care (01) ==
LOC: HO.HBS 08:17
PROVIDERS: PCP Nurse Practitioner Family; Visit Provider Surgery
DX: E66.01 Morbid (severe) obesity due to excess calories (principal); Z68.42 Body mass index [BMI] 45.0-49.9, adult
CPT/HCPCS: 99442

== ENCOUNTER → 2023-11-28 08:17 | Outpatient (BNVA) | payer OTHER, SELFPAY | PROVIDERS: PCP Nurse Practitioner Family; Visit Provider Surgery ==

== ENCOUNTER 2023-12-05 09:24 | Outpatient (REF) | payer OTHER, SELFPAY ==
--- NOTE | ~2023-12-05 | FL_ITS ---
EXAMINATION: XR FLUOROSCOPY UPPER GI WITH AIR CLINICAL INFORMATION: Preop evaluation prior to bariatric surgery COMPARISON: None TECHNIQUE: Fluoroscopic air contrast upper GI examination was performed utilizing standard techniques with thin and thick barium and effervescent granules. Numerous spot images were obtained. FINDINGS: Dual and single contrast images of the esophagus demonstrate normal caliber, contour, and mucosal pattern. No evidence of stricture, mass, or ulcerations identified. Esophageal peristalsis was normal. No evidence of hiatus hernia identified. Gastroesophageal reflux is seen up to the thoracic inlet. Dual contrast and single contrast images of the stomach demonstrated poor coating of the superior aspect and lesser curvature. Otherwise grossly normal contour and mucosal pattern without evidence of mass, ulceration, or other abnormality. Contrast freely passed into the gastric antrum and duodenal bulb without delay. Single and air-contrast images of the duodenal bulb demonstrate no abnormality. The duodenal sweep has a normal appearance, course, and mucosal fold appearance. The imaged proximal jejunum has a normal fold pattern and caliber. FLUOROSCOPY TIME: 2 minutes 8 seconds Number of Spot Images: 10 Number of Cine: 6 DOSE AREA PRODUCT: 2161 uGy-m2 (microgray-meter squared) FL/FL upper GI w air IMPRESSION: Significant gastroesophageal reflux This procedure was performed by Ananth Vargas PA-C, and supervised by Dr. Vasques
== END 2023-12-05 09:25 | disposition home or self-care (01) ==
LOC: HO.XRAY 09:24
PROVIDERS: PCP Nurse Practitioner Family; Visit Provider Surgery
DX: E66.01 Morbid (severe) obesity due to excess calories (principal)
CPT/HCPCS: 74246

== ENCOUNTER → 2023-12-05 09:25 | Outpatient (BNV) | payer OTHER, SELFPAY | PROVIDERS: PCP Nurse Practitioner Family; Visit Provider Radiology Diagnostic Radiology | DX: Z01.818 Encounter for other preprocedural examination (principal) | CPT/HCPCS: 74246 ==

== ENCOUNTER 2023-12-12 08:07 | Outpatient (AMB) | payer OTHER, SELFPAY ==
--- NOTE | 2023-12-12 10:02 | MHC.OFFVISWM ---
Intake VS Expanded 12/12/23 10:15 Height 5 ft 9 in Weight 317 lb BMI 46.8 Body Fat % 61.8 Body Fat Mass 195.9 Fat Free Mass 121 Visceral Fat Rating 27 Body Water % 26.2 Body Water Mass 83 Basal Metabolic Rate/Score 1,561 Intake Visit Reasons: TV Pre Op LSG 12/16/23 Allergies No Known Allergies Allergy (Verified 12/12/23 10:03) Medication List - Last Reconciled 12/12/23 by Fabian Milton MD ondansetron 4 mg PO Q12H pantoprazole 40 mg PO DAILY polyethylene glycol 3350 (Miralax) 17 grams PO DAILY sucralfate 10 mL PO BID topiramate 75 mg PO BID HPI TV Pre Op LSG 12/16/23 HPI Details Start time: 9.58am, End time: 10.28am ?I spent 25 minutes speaking with the patient on the phone plus an additional 5 minutes reviewing and updating records for a total of 30 minutes HPI Comments History of Present Illness Details Overall weight loss: 22.4lbs, or 6.56% TBWL Is doing 2 Celebrate Rebuild protein shakes, 2 Celebrate protein bars and one meal (6 forks of protein and 6 forks of salad or vegetables) Exercise: is doing treadmill x 4 days per week for 600 calories per workout and one more day for 400 calories PFSH Medical History (Updated 11/18/23 @ 13:00 by Victoria Pham) Nexplanon in place Migraines Morbid obesity Surgical History (Updated 12/09/23 @ 10:27 by Cierra Garcia RN) No pertinent past surgical history Social History Are you a primary managed care nurse to a significant other at home: No Do you presently have visiting nurse or other home services: No Patient Tobacco Use Status: Never used Tobacco Assessment & Plan Assessment & Plan (1) Morbid obesity: Code(s): E66.01 - Morbid (severe) obesity due to excess calories Plan: 1. Plan for lap sleeve gastrectomy including upper GI endoscopy. All tests has been completed and reviewed and the patient is cleared for the surgery. ?If diaphragmatic or ventral hernias are present at time of surgery, these will be repaired laparoscopically as well. Risks and complications were discussed in detail including possible conversion to an open procedure, anastomotic leak, bleeding requiring transfusion, small bowel obstruction, , DVT and pulmonary embolism, cardiac, or pulmonary complications, as skilled nursing complications such as anastomotic ulcer, insufficient weight loss and vitamin deficiencies. I emphasized the importance of close follow-up, adherence to instructions and good communication. So far she has proven to be an excellent communicator and very compliant with all our directions accomplishing a great weight loss. I believe that she is an excellent candidate and she is ready. 2. Preop prescriptions were provided and explained the purpose of each one. Need to be purchased preop. Start Pantoprazole now as you get it from the pharmacy, 1 pill per day. Sucralfate and Zofran are for after surgery as needed. 3. Bowel prep: please do 7 packets ?of Miralax mixing each one with a an 8oz glass of water, crystal light, gatorade zero, or propel ?on 12/14/23 and the same amount on 12/15/23. The Miralax you begin with one packet at a time in 8oz water or crystal light, gatorade zero, or propel ?as early in the day as you can and you do them back to back until you finish them. Continue the protein shakes during? the bowel prep. 4. Needs to purchase 1oz medicine cups . 5. Needs to purchase Children's liquid Tylenol for postop pain control. 6. Avoid aspirin, motrin, Advil, Aleve, Ibuprofen, Naproxyn. Tylenol is OK. 7. She needs to purchase the Celebrate 4:1 protein shakes from the hospital's gift shop. 8. Will do basic preop blood work-up any day between Friday10/21/22 and Friday10/25/22 fasting for 12 hours and is scheduled to see the Anesthesiologist prior to the day of surgery. 9. Importance of adherence to postop folllow-up and recommendations was underscored and she understands that. 10. Stop food and bars as of today 12/12/23 and continue with one Celebrate Rebuild protein shake (ONE scoop in 8oz almond milk) at 9am-11am and four more Celebrate Rebuild protein shakes with TWO scoops EACH in 8oz of almond milk at 12pm-2pm, 3pm-5pm, 6pm-8pm and 9pm-11pm 11. The patient's?medical?history has been reviewed and they are considered low risk for post op DVT and therefore DVT prophylaxis is not considered necessary. Travel after surgery was reviewed. The patient has not disclosed any travel plans during the first 30 days after surgery and they have been advised that within the first 30 days after surgery any bus, plane, train or car travel over 2 hours in duration is contraindicated due to the possibility of developing blood clots from immobility. Any travel, needs to include periods of ambulation of 10 minutes in duration every 2 hours.? Patient was instructed to discuss any plans for travel during this period with their bariatric surgeon.? 12. Please take at the day of surgery the following medications: NONE 13. Stop any control pills and don't use them for one month after surgery 14. Absolutely no smoking or vaping, or marijuana until the surgery and for at least the first 4 weeks. Only nicotine patches are allowed. 15. Send me weight measurements on the day of surgery Friday12/16/23 before you go to the hospital. 16. Avoid any steroids by mouth for any reason. Let me know if someone prescribes them to you 17. These instructions supersede anything else you read in the handbook, anything you watched in videos or classes or you were told by any other provider. If there is any conflict, you follow the above instructions and nothing else. Medications: New sucralfate 10 mL PO BID 600 mL 2RF K21.9 - Gastro-esophageal reflux disease without esophagitis ondansetron Only take one every 12 hours as needed if you have nausea 4 mg PO Q12H 20 tabs 0RF nausea and vomiting R11.0 - Nausea pantoprazole 40 mg PO DAILY 90 tabs 0RF K21.9 - Gastro-esophageal reflux disease without esophagitis polyethylene glycol 3350 (Miralax) Mix each packet with 8oz of water, Crystal light, or Gatorade zero, or Propel and do 7 packets on 12/14/23 and another 7 packets on 12/15/23 17 grams PO DAILY 14 ea 0RF Z01.818 - Encounter for other preprocedural examination Telehealth Telehealth Location of provider rendering services: practice address Location of patient: address on file Patient Identification confirmed using: Name, : Yes Telehealth method: voice only Patient verbally consented to treatment: Yes Patient verbally consented to billing insurance company: Yes Patient informed of any privacy concerns related to visit: Yes Minutes spent on Phone/Video with Pt.: 30 Coding Level of Care Code Tele Est Pt Level 4 (51129) Diagnoses Morbid obesity E66.01 Time Spent (min) 30
[2023-12-12 10:15] VITALS: BMI 46.8
== END 2023-12-12 10:29 | disposition home or self-care (01) ==
LOC: HO.HBS 08:07
PROVIDERS: PCP Nurse Practitioner Family; Visit Provider Surgery
DX: E66.01 Morbid (severe) obesity due to excess calories (principal); Z68.42 Body mass index [BMI] 45.0-49.9, adult
CPT/HCPCS: 99024

== ENCOUNTER → 2023-12-12 08:07 | Outpatient (BNVA) | payer OTHER, SELFPAY | PROVIDERS: PCP Nurse Practitioner Family; Visit Provider Surgery ==

== ENCOUNTER 2023-12-15 12:24 | Outpatient (REF) | payer OTHER, SELFPAY ==
[2023-12-15 13:30] LABS: Prothrombin Time 12.4 SEC (11.1-13.3)
[2023-12-15 13:32] LABS: Partial Thromboplastin Time 30.9 SEC (26.0-36.4)
== END 2023-12-15 12:25 | disposition home or self-care (01) ==
LOC: HO.LAB 12:24
PROVIDERS: Visit Provider Surgery
DX: E66.01 Morbid (severe) obesity due to excess calories (principal)
CPT/HCPCS: 36415; 85610; 85730

== ENCOUNTER 2023-12-16 06:03 | Inpatient (IN) | payer OTHER, SELFPAY ==
[2023-12-09 10:27] VITALS: BMI 47.7
[2023-12-11 09:48] LABS: MANUAL DIFF FLAG NO
[2023-12-11 10:55] LABS: Basophils Absolute Auto 0.1 X10*3/uL (0.0-0.2); Basophils Percent Auto 0.5 % (0-2); Eosinophils Absolute Auto 0.1 X10*3/uL (0.0-0.4); Eosinophils Percent Auto 0.6 % (0-4); Imm Gran Abs Auto 0.08 X10*3/uL (0.00-0.03); Imm Gran Pct Auto 0.6 % (0.0-0.4); Lymphocytes Absolute Auto 3.1 X10*3/uL (1.2-4.9); Lymphocytes Percent Auto 21.7 % (20-40); Mean Corpuscular HGB Conc 33.3 g/dl (31.0-35.0); Mean Corpuscular Hemoglobin 28.3 pg (27.0-33.0); Mean Corpuscular Volume 84.8 fL (80.0-98.0); Mean Platelet Volume 10.4 fL (9.4-12.3); Monocytes Absolute Auto 0.8 X10*3/uL (0.1-1.2); Monocytes Percent Auto 5.4 % (2-11); Neutrophils Absolute Auto 10.2 x10*3/uL (2.0-8.3); Neutrophils Percent Auto 71.2 % (45-73); Platelet Count 397 X10*3/uL (160-400); Red Cell Distribution Width 13.9 % (11.0-16.0); White Blood Count 14.4 X10*3/uL (4.8-10.8)
[2023-12-11 11:08] LABS: Estimated Average Glucose 108 mg/dL; Hemoglobin A1c % 5.4 % (<6.0)
[2023-12-11 11:43] LABS: Alanine Aminotransferase 18 U/L (0-31); Albumin Level 4.3 g/dL (3.5-5.0); Alkaline Phosphatase 72 U/L (39-117); Anion Gap 14 (12-20); Aspartate Amino Transferase 16 U/L (5-31); Bilirubin Total 0.4 mg/dL (0.0-1.0); Blood Urea Nitrogen 7 mg/dL (9-16); C Reactive Protein 0.88 mg/dL (< or = 0.50); Calcium 9.6 mg/dL (8.4-10.2); Carbon Dioxide 26 mmol/L (22-29); Chloride 106 mmol/L (96-108); Cholesterol 131 mg/dL (<200); Creatinine Clr Calc Pharmacy 165.8; Estimated Glomerular Filt Rate > 60; Glucose Random 94 mg/dL (60-115); HDL Cholesterol 37 mg/dL (>40); Iron 64 mcg/dL (30-160); LDL Cholesterol Calculated 80 mg/dL (<100); Percent Iron Saturation 22 % (15-50); Potassium 4.1 mmol/L (3.3-5.1); Sodium 142 mmol/L (135-145); Total Iron Binding Capacity 295 mcg/dL (228-428); Total Protein 7.4 g/dL (6.5-8.0); Triglycerides 71 mg/dL (<150); Unsaturated Iron Binding 231 ug/dL
[2023-12-11 11:48] LABS: Ferritin 113 ng/mL (10-122); Insulin 21 uU/mL (2-29); Vitamin D 25-OH Total 39.5 ng/mL (>30)
[2023-12-11 11:55] LABS: Folate 11.1 ng/mL (> or = 4.0); Vitamin B12 960 pg/mL (200-900)
[2023-12-15 09:13] LABS: Vitamin A 48 mcg/dL (38-98)
[2023-12-15 15:28] LABS: Zinc 82 mcg/dL (60-130)
[2023-12-16] VITALS (16 sets, daily range): BP systolic 130–170; BP diastolic 75–97; PULSE 66–113; RESP 14–18; TEMP 35.9–36.7; O2SAT 96–100; BMI 48.4
--- OUTSIDE RECORDS SUMMARY | 2023-12-16 06:14 | XMS_ITS | Continuity of Care Document ---
Author Name Unknown Organization [facility] Adult Address [address] [place] [address]- Care Team Providers Care Night Club Manager Name Role Phone Latonia JAQUEZ, Roc Sosa Primary Care Physician [phone] Encounter [facility] [place] Date(s): 11/13/23 - 11/20/[address] [address]- Encounter Diagnosis Impaired glucose tolerance(Discharge Diagnosis) - 11/13/23 Morbid obesity with BMI of 40.0-44.9, adult(Discharge Diagnosis) - 11/13/23 Prediabetes(Discharge Diagnosis) - 11/13/23 Severe obesity(Discharge Diagnosis) - 11/13/23 Attending Physician: Not on Staff, Attending MD Allergies, Adverse Reactions, Alerts No Known Medication [...] Recorded Medications topiramate 50 mg oral tablet 1.5 tablet = 75 mg, By Mouth, 2 times a day, # 270 tablet, 2 Refills, Maintenance, 11/13/23 14:36:00 EST, Tablet, [id number], Partial fill upon patient request if the prescription isfor a schedule II opioid drug., 175, cm, 11/13/23 1... Start Date: 11/13/23 Stop Date: 08/09/24 Status: Ordered Wegovy (0.25 mg dose) subcutaneous solution = 0.25 mg, Subcutaneous Injection, Every week, for 4 week(s), in the abdomen, thigh, or upper arm, # 2 mL, 0 Refills, Acute 12/11/23 14:17:00 EST, 11/13/23 14:17:00 EST, Solution, [facility], Partial fill upon patient request if the p... Start Date: 11/13/23 Stop Date: 12/11/23 Status: Ordered Problem List Condition Confirmation Course Effective Dates Status Health atus Informant Impaired glucose tolerance Confirmed Active Morbid obesity with BMI of 40.0-44.9, adult Confirmed Active Obesity, unspecified Confirmed Active Prediabetes Confirmed Active Severe obesity Confirmed Active Diagnosis Diagnosis Type Effective Dates Health Status Clinical Service Informant Impaired glucose tolerance Discharge Diagnosis 11/13/23 Morbid obesity with BMI of 40.0-44.9, adult Discharge Diagnosis 11/13/23 Prediabetes Discharge Diagnosis 11/13/23 Severe obesity Discharge Diagnosis 11/13/23 Vital Signs Most recent to oldest [Reference Range]: 1 2 3 Height 175 cm (11/13/23 2:32 PM) 175 cm (11/13/23 2:00 PM) 175 cm (11/13/23 1:54 PM) Weight 152.0 kg (11/13/23 1:54 PM) Oxygen Saturation [94-100 %] 98 % (11/13/23 1:54 PM) Pulse Rate [55-90 bpm] 111 bpm *H* (11/13/23 1:54 PM) Body Mass Index [18.5-24.99 kg/m2] 49.63 kg/m2 *>HHI* (11/13/23 1:54 PM) Blood Pressure [90-138/55-84 mm Hg] 124/84mm Hg (11/13/23 2:32 PM) 146/94mm Hg *H* (11/13/23 2:00 PM) 146/103mm Hg *H* (11/13/23 1:54 PM) Mode of Delivery (Oxygen) Room air (11/13/23 1:54 PM) Blood pressure sites Arm, left (11/13/23 2:32 PM) Arm, right (11/13/23 2:00 PM) Arm, right (11/13/23 1:54 PM) Weight Obtained Via Standing scale (11/13/23 1:54 PM) Social History Social History Type Response Smoking Status Never smoker entered on: 03/27/16 Sex Note * Yuliet Rodriguez: PERFORM, SIGN, VERIFY Event Display: Patient Education/Instruction Authored Date: [id number] [facility] *[facility] Clinical Summary Name BREN MORALSE Age 28 Years 1995 PCP Roc Lincoln NP PCP Visit Date 11/13/2023 13:41:00 Additional Instructions: Scheduled Appointments?? Future Appointments ?No Future Appointments Scheduled Follow-Up Instructions ?? With: Address: When: Roc Lincoln NP Comments: 6 months [facility]?? [facility] Diagnosis Prediabetes; Morbid (severe) obesity due to excess calories; Morbid (severe) obesity due to excess calories; Impaired glucose tolerance (oral) Medications: Please continue your medications until treatment is completed or stopped by your provider. Discuss any questions related to medications with your provider. New Medications [facility], [address], [place] [id number], [phone] semaglutide (Wegovy (0.25 mg dose) subcutaneous solution) 0.25 Milligram Subcutaneous Injection every week for 4 week(s). in the abdomen, thigh, or upper arm. Refills: 0. Next Dose: [facility] #[id number], [address], [place] [id number], [phone] Topiramate (topiramate 50 mg oral tablet) 1.5 tab(s) Oral twice a day for 90 Days. Refills: 2. Next Dose: Allergy Info:?? No Known Medication Allergies Medications Given This Visit Future Orders ?No future orders Vital Signs Height 175 cm Weight 152.0 kg BMI 49.63 kg/m2 Blood Pressure 124 mm Hg/84 mm Hg Temperature Pulse Rate 111 bpm Respiratory Rate 02 Sat Mode of Delivery 98 %/Room air You can now view a summary of your hospital visit from the comfort of your home through a free online portal called [employer]. [employer] is a website that allows you to securely view your medical information including discharge summary, medications and follow-up visits. ??You can alsosend a secure electronic message to your doctor???s office to request appointments, renew medications or just ask a question. You can enroll at [email or web address] or register during your next office visit. Disclaimer:?? The information provided is of a general nature and is intended to be used in conjunction with the recommendations and advice of your health care practitioner. ??Every effort has been made to ensure that the information provided is accurate and complete at the time it is provided to you however, as your needs change, or, as new ??information becomes available, different or additional instructions may be required. If you have questions, please consult with your primary care provider or pharmacist, as appropriate. ??This information is not intended to serve as substitution for assessment and evaluation by a qualified health care provider. If you do not have a primary care provider, you may find a [facility] provider by calling [facility] at [phone]. [facility], in keeping with [facility] guidance, no longer requires face masks for staff, patientsor visitors in most situations. Similar to time spent indoors at other locations, there is the chance that you were exposed to respiratory viruses during your time with us (such as flu or COVID-19).? If you develop symptoms concerning for a viral respiratory infection, please seek testing (and treatment if indicated) from your medical provider or home test kit. For information about the plan of care including goals and instructions for your diagnosis, please see the patient education orders section of this document. Patient Education Materials?? The content of this educational material or handout may have been modified, supplemented, or adapted from its original content and format to support your individualized medical care. Prevention Guidelines,??Women Ages 18 to 39 Screening tests and vaccines are an important part of managing your health. Health counseling is essential, too. Below are guidelines for these, for women ages 18 to 39. Talk with your healthcare provider to make sure you???re up-to-date on what you need. Screening Who needs it How often Alcohol misuse All women in this age group At routine exams Blood pressure All women in this age group Every 2 years if your blood pressure is less than 120/80 mm Hg; yearly if your systolic blood pressure is 120 to 139 mm Hg, or your diastolic blood pressure reading is 80 to 89 mm Hg Breast cancer All women in this age group should talk with their healthcare providers about the need for clinicalbreast exams (CBE)1 Clinical breast exam every 3 years1 Cervical cancer Women ages 21 and older Women between ages 21 and 29 should have a Pap test every 3 years; women between ages 30 and 65 areadvised to have a Pap test plus an HPV test every 5 years Chlamydia Sexually active women ages 24 and younger, and women at increased risk for infection Every 3 years if you're at risk or have symptoms Depression All women in this age group At routine exams Diabetes mellitus, type 2 Adults with no symptoms who are overweight or obese and have 1 or more other risk factors for diabetes At least every 3 years Gonorrhea Sexually active women at increased risk for infection At routine exams Hepatitis C Anyone at increased risk At routine exams HIV All women At routine exams Obesity All women in this age group At routine exams Syphilis Women at increased risk for infection ??? talk with your healthcare provider At routine exams Tuberculosis Women at increased risk for infection ??? talk with your healthcare provider Ask your healthcare provider Vision All women in this age group At least 1 complete exam in your 20s, and 2 in your 30s Vaccine2 Who needs it How often Chickenpox (varicella) All women in this age group who have no record of this infection or vaccine 2 doses; the second dose should be given 4 to 8 weeks after the first dose Hepatitis A Women at increased risk for infection ??? talk with your healthcare provider 2 doses given at least 6 months apart Hepatitis B Women at increased risk for infection ??? talk with your healthcare provider 3 doses over 6 months; second dose should be given 1 month after the first dose; the third dose should be given at least 2 months after the second dose and at least 4 months after the first dose Haemophilus influenzae??Type B (HIB) Women at increased risk for infection ??? talk with your healthcare provider 1 to 3 doses Human papillomavirus (HPV) All women in this age group up to age 26 3 doses; the second dose should be given 1 to 2 months after the first dose and the third dose given 6 months after the first dose Influenza (flu) All women in this age group Once a year Measles, mumps, rubella (MMR) All women in this age group who have no record of these infections or vaccines 1 or 2 doses Meningococcal Women at increased risk for infection ??? talk with your healthcare provider 1 or more doses Pneumococcal conjugate vaccine (PCV13)??and pneumococcal polysaccharide??vaccine??(PPSV23) Women at increased risk for infection ??? talk with your healthcare provider PCV13: 1 dose ages 19 to 65 (protects against 13 types of pneumococcal bacteria) PPSV23: 1 to??2 doses through age 64, or 1 dose at 65 or older (protects against 23 types of pneumococcal bacteria) Tetanus/diphtheria/pertussis (Td/Tdap) booster All women in this age group Td every 10 years, or a one-time dose of Tdap instead of a Td booster after age 18, then Td every 10 years Counseling Who needs it How often BRCA gene mutation testing for breast and ovarian cancer susceptibility Women with increased risk for having gene mutation When your risk is known Breast cancer and chemoprevention Women at high risk for breast cancer When your risk is known Diet and exercise Women who are overweight or obese When diagnosed, and then at routine exams Domestic violence Women at the age in which they are able to have children At routine exams Sexually transmitted infection prevention Women who are sexually active At routine exams Skin cancer Prevention of skin cancer in fair-skinned adults through age 24 At routine exams Use of tobacco and the health effects it can cause All women in this age group Every visit 1According to the ACS, women ages 20 to 39 years should have a clinical breast exam (CBE) as part of their routine health exam every 3 years, and breast self- exams are an option for women starting intheir 20s.??However, the ??USPSTF does not recommend CBE. 2Those who are 18 years of age, who are not up-to-date on their childhood immunizations, should receive all appropriate catch-up vaccines recommended by the CDC. ?? 7438-6686 [employer]. [address] [place] [address]. All rights reserved. This information is not intended as a substitute for professional medical care. Always follow your healthcare professional's instructions. Patient Care team information Care Team Personnel Name: Roc Lincoln NP Position: [facility] Associate Professional Member Role: PCP Address: Address: [address] [place] [address] [address] [place], [place] [address]
--- OUTSIDE RECORDS SUMMARY | 2023-12-16 06:14 | XMS_ITS | Continuity of Care Document ---
Author Name Unknown Organization [facility] Adult Address [address] [place] [address]- Care Team Providers Care Aerial Erector Name Role Phone Roc Lincoln NP Primary Care Physician Encounter [facility] Date(s): 09/22/23 - 10/22/23 [facility] [address] [place] [address]- Allergies, Adverse Reactions, Alerts No Known Medication [...] Refills, Maintenance, 09/22/23 11:50:00 EST, Tablet, [id number], Partial fill upon patient request if the [...] Team Personnel Name: Roc Lincoln NP Position: [facility] Associate Professional Member Role: PCP Address: Address: [address] [place] [id number]
[2023-12-16] MEDS: Lactated Ringers 1,000 ML 999 ML IV (06:25)
[2023-12-16 06:40] LABS: UPreg QC Valid YES; Urine Pregnancy NEGATIVE (NEGATIVE)
[2023-12-16] MEDS: Aprepitant 32 MG/4.4 ML VIAL IVPUSH (06:50)
--- NOTE | 2023-12-16 07:03 | HO.ANESPROP2 ---
HPI - Anesthesia Eval Consult details Narrative: Morbid Obesity [facility] Active Problems Active Problems: All Active Problems (Updated 11/18/23 @ 13:00 by Victoria Pham) Unspecified episodic mood disorder (Acute) Migraines (Acute) Morbid obesity (Acute) Past Medical History Medical History Nexplanon in place Migraines Morbid obesity Family History Family history of problems with anesthesia: No Surgical History Surgical History No pertinent past surgical history History of Problems with Anesthesia: No Social History Social History Are you a primary healthcare administrative assistant to a significant other at home: No Do you presently have visiting nurse or other home services: No Patient Tobacco Use Status: Never used Tobacco Use of substances other than those prescribed or required for medical reasons: No Have you been hit, kicked, punched, or otherwise hurt by someone within the past year? If so, by whom?: No Are you DNR?: No Advance Directives: No Advance Directives Information Provided: Yes (brochure mailed) Advance Directives on File: No Recently lost weight without trying: No Eating poorly because of decreased appetite: No Nutrition Risks: No Nutritional Risk Patient : No FDLMP: N/A-has Nexplanon : No Poor oral hygiene: No Meds Allergies Allergy/AdvReac Type Severity Reaction Status Date / Time No Known Allergies Allergy Verified 12/16/23 06:10 Active Medications: Current Medications Lactated Ringer's (Lr) 1,000 mls @ 999 mls/hr IV .Q1H1M JALEN Stop: 12/16/23 08:15 Last Admin: 12/16/23 06:25 Dose: 999 mls/hr Home Medications Medication Instructions Recorded Confirmed Last Taken Type topiramate 50 mg tablet 75 mg PO BID 12/09/23 12/12/23 12/15/23 History Exam Height,Weight and Vital Signs: Height 5 ft 9 in Weight 148.597 kg Last Vital Signs Temp 98.0 F 12/16/23 06:23 Pulse 101 H 12/16/23 06:23 Resp 18 12/16/23 06:23 BP 142/82 H 12/16/23 06:23 Pulse Ox 100 12/16/23 06:23 O2 Del Method Room Air 12/16/23 06:23 Pertinent Lab Results Pertinent Lab Results: Laboratory Tests 12/11/23 12/15/23 12/16/23 09:45 12:33 06:00 WBC 14.4 H RBC 4.60 Hgb 13.0 Hct 39.0 MCV 84.8 MCH 28.3 MCHC 33.3 RDW 13.9 Plt Count 397 MPV 10.4 Immature Gran % (Auto) 0.6 H Neut % (Auto) 71.2 Lymph % (Auto) 21.7 [place] % (Auto) 5.4 Eos % (Auto) 0.6 Baso % (Auto) 0.5 Lymph # (Auto) 3.1 [place] # (Auto) 0.8 Eos # (Auto) 0.1 Baso # (Auto) 0.1 Abs Immat Gran (auto) 0.08 H Absolute Neuts (auto) 10.2 H Absolute Nucleated RBC 0.000 Nucleated RBC % (auto) 0.0 Sodium 142 Potassium 4.1 Chloride 106 Carbon Dioxide 26 Anion Gap 14 BUN 7 L Creatinine 0.77 Estim Creat Clear Calc 165.8 Estimated GFR > 60 Random Glucose 94 Estimat Average Glucose 108 Hemoglobin A1c % 5.4 Insulin Level 21 Calcium 9.6 Iron 64 TIBC 295 % Saturation 22 Unsat Iron Binding 231 Ferritin 113 Total Bilirubin 0.4 AST 16 ALT 18 Alkaline Phosphatase 72 C-Reactive Protein 0.88 H Total Protein 7.4 Albumin 4.3 Triglycerides 71 Cholesterol 131 LDL Cholesterol, Calc 80 HDL Cholesterol 37 L Vitamin A 48 Vitamin B12 960 H 25-OH Vitamin D Total 39.5 Folate 11.1 TSH 0.60 Urine Test NEGATIVE Zinc 82 Blood Type O Positive Antibody Screen NEGATIVE Airway Mallampati Class: III TM Dist: >3cm Neck ROM: Full Loose/Missing/Broken Teeth: No Heart: rrr+s1s2 Lungs: cta b/l Assessment and Plan Assessment Anesthesia Assessment: Anesthesia Plan Discussed and Chart Reviewed Final Anesthetic Review Family History of Problems with Anesthesia: No History of Problems with Anesthesia: No NPO: Yes ASA Class: III Final Preanesthetic Review: No Changes in Pt Med Stat, Meds/Allgs Chart Reviewed, Consent Obtained/Reviewed and Anes Risks/Benef Reviewed Patient Risk: Intermediate Procedure Risk: Intermediate Assessment/Block/Sedation in SS: Assess/Block/Sedation-SS Anesthetic Plan Anesthetic Plan: GA Disposition: Standard PACU
--- NOTE | 2023-12-16 07:36 | MHC.SHP ---
Pre-Procedural Eval Section A - 24 Hr Update-Section A only Date of Service: 12/16/23 The patient is an INPATIENT: Yes The patient has been examined within 24 hours of the surgical procedure. The History & Physical has been completed within 30 days and I have reviewed it.: Yes Section B - Complete if H&P > 30 days Chief Complaint: Morbid Obesity Relevant Family History (Specify if Yes): No Relevant Social History: None Present Medications: None Medical History: No relevant PMH History of Previous Operations: No relevant previous surgery Allergies: Allergies Allergy/AdvReac Type Severity Reaction Status Date / Time No Known Allergies Allergy Verified 12/16/23 06:10 Review of Systems Sugical H&P ROS: Negative: Constitution, Cardiovascular, Respiratory, Neurological, Psychiatric, Hem-Onc, Allergic/Immunologic, Gastrointestinal, Genitourinary, Musculoskeletal, Integumentary, Endocrine and Eyes/Ears/Nose/Throat Exam Surgical H&P Exam: Normal: HEENT, Normal: Heart, Normal: Lungs, Normal: Extremities, Normal: Abdomen, Normal: Skin and Normal: Neurological Plan Diagnosis/Plan: Unchanged I have reviewed the history and physical and performed a pertinent physical examination on my patient. No changes have occurred unless specified. Time Spent With Patient Time: Total time managing care of this patient today ____ minutes.
--- NOTE | 2023-12-16 07:39 | P.BOP_ITS ---
Brief Operative Note Date of Service: 12/16/23 Pre-op diagnosis: Morbid obesity Post-op diagnosis: same Procedure: INITIAL PATIENT BMI ON PRESENTATION AT OUR OFFICE: 50.4 kg/m2 LAST BMI BEFORE SURGERY: 47 kg/m2 COMORBIDITIES: migraines, GERD, cholelithiasis, liver fibrosis ?The patient presented to the Weight Management Program with significant obesity that was negatively impacting the patient's comorbidities as listed above.? The program is a phased program with a special focus on preoperative medical weight management to promote substantial weight loss and prepare the patients for the second phase of the program: bariatric surgery. The patient participated in an intensive weekly lifestyle ?intervention and exercise program during which the patient ?has lost between the initial office visit and the last preoperative visit 22.4lbs, or % of initial actual body weight. It was deemed appropriate for the patient to now have bariatric surgery. In light of the current Covid-19 pandemic and the well documented strong association of obesity and increased risk of worse outcomes if infected with Covid-19 (REFERENCES: https://pubmed.ncbi.nlm.nih.gov/57903219/ ,? https://pubmed.ncbi.nlm.nih.gov/85788871/ ), any delay in undergoing bariatric surgery may lead to the patient's worsening health condition and increased?risk of more severe Covid-19 disease if infected. In addition a recent?study from [facility] published in [employer] on 11/12/2021 ([email or web address]) found that, among patients with obesity, substantial weight loss achieved with surgery was associated with improved outcomes of COVID-19 infection. The findings suggest that obesity can be a modifiable risk factor for the severity of COVID-19 infection. In addition, the patient met the BMI-criteria for bariatric surgery based on the BMI on initial presentation. The patient should not be penalized for achieving such weight loss because ?it is not sustainable long-term without surgical intervention and it was achieved in preparation for bariatric surgery ?under my direction and based on my published research ([email or web address]).[email or web address] and? https://www.scottie.org/article/[email or web address](16)44806-X/pdf ) ?that a 10% preoperative weight loss improves long-term weight loss after surgery and reduces perioperative complications.? Insurance carriers such as [facility] have endorsed my recommendations ?and have included in their policies criteria to include a 10% preoperative weight loss requirement. PROCEDURE: Esophago-gastroscopy, laparoscopic sleeve gastrectomy and laparoscopic gastropexy. Extrmely dificult operation technically due to the patient's body habitus INDICATIONS: This is a 28 year-old female who was electively scheduled for laparoscopic, possibly open sleeve gastrectomy. The risks and complications of the procedure were discussed with the patient in advance, particularly the possibility of ; pulmonary embolism; staple line leak; bleeding; GERD; cardiac, pulmonary, or renal complications; as well as long-term problems such as insufficient weight loss, vitamin deficiency, strictures, or ulcers. The patient understood all the risks, and was in agreement to proceed with surgery. DESCRIPTION OF PROCEDURE: After informed consent was obtained from the patient, the patient was given preoperative antibiotics, and was transferred to the operating room. After successful induction of general anesthesia, pneumatic compression devices were placed on both lower extremities. An upper endoscopy was performed next. The oropharynx and esophagus appeared to be within normal limits. There was a diaphragmatic hernia present of moderate size consistent with the findings of the preoperative upper GI. The stomach was entered. Then after all fluid and air were suctioned and the stomach was fully decompressed, the scope was withdrawn and secured in the mid esophagus. The patient was then prepped and draped in the usual sterile manner, and abdominal access was established at the right upper quadrant with the Hosea technique. A 12 mm blunt port was inserted, and the abdomen was insufflated with CO2 to a pressure of 15 mmHg. Under direct visualization, additional ports were placed, specifically two 5 mm Versi-step ports to the left upper quadrant, and a 5 mm Versi-Step port to the right upper quadrant. 1% lidocaine plain was used to infiltrate all port sites as well as all fascia defects. Using the EndoClose suture passer device, I placed a #1 Polysorb tie across the falciform ligament in order to retract it up against the abdominal wall and prevent injury of the ligament with our instruments during the procedure. Following that, the patient was placed in a steep reverse Trendelenburg position. An additional 5 mm port was placed to the right flank for the Mediflex retractor that was used to retract the left lobe of the liver. The gastro-esophageal fat pad was opened with the ultrasonic device (Thunderbeat, Olympus) and the anterior esophagus and hiatus were exposed. The angle of His was opened with the ultrasonic device the fundus of the stomach from any diaphragmatic and splenic attachments. I then opened the gastrocolic ligament between the transverse colon and the greater curvature of the stomach with the ultrasonic device to enter the lesser sac and facilitate the ligation of the short gastric vessels. I started at a mid-point along the greater curvature and using the Thunderbeat, all short gastric vessels were divided all the way to the angle of His until the left say was completely dissected at its entirety. I then divided the gastro-colic ligament distally to a distance of about 3-4 cm proximal to the pylorus. The stomach was then divided transversely with one Endo MOODY-45 purple and five MOODY-60 articulating purple loads using the SIGNIA stapler and loads. Every effort was made that the gastric sleeve had a tubular shape and an even caliber throughout. Once the sleeve resection was completed, the staple line of the gastric sleeve was reinforced with Hemoclips. The resected stomach was retrieved without difficulty from the Hosea port. A gastropexy was then performed in order to prevent postoperative GERD and partial gastric volvulus. Several interrupted 2.0 Surgidac sutures were placed between the sleeve's staple line and the previously divided greater omentum and gastro-colic ligament using the Endo-Stitch device. ?An upper endoscopy was performed. There was no narrowing at the GE junction. The scope was easily advanced all the way to the pylorus which was clearly visualized. There was no narrowing anywhere and the sleeve's caliber was even throughout. The sleeve's staple line was inspected and there was no evidence of ischemia, bleeding or dehiscence. At that point the gastroscope was withdrawn from the patient?s mouth while we were decompressing the bowel and the stomach from any remaining air. I looked into the lesser sac to see how the sleeve was situating and it was situating well. There was no bleeding from the staple line, spleen, or short gastric vessels. The Mediflex retractor was removed, and the undersurface of the liver was inspected and there was no bleeding. The patient was placed in supine position. I closed the fascial defect of the 12 mm port site with a figure of eight #1 Polysorb suture. Then 30cc Ropivacaine plain with 10 mg of Dexamethasone were used to infiltrate the fascial closure as well as all skin incisions. At this point, the abdomen was deflated, all ports were removed under direct vision, and no bleeding was noted from any of the port sites. The skin incisions were irrigated with saline and were closed with 4-0 absorbable monofilament sutures. Steri-Strips and OpSites were used to cover all incisions. The patient was extubated and was transferred in stable condition to the recovery room for further care. I was present and performed all llanes parts of the procedure. 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 There were no residents to assist with this case. Zain Milton MD, PhD, FACS Surgeon: Fabian Milton MD Anesthesia: GETA, local and other (TAP block) Was an Dock Or Pier Laborer used for this Procedure?: No Dock Or Pier Laborer: Mary Ly Estimated blood loss (mL): 10 IV fluids (mL): 3,500 Urine output (mL): 0 (No Henry to record output) Pathology: other (Stomach) Condition: stable Disposition: PACU
--- NOTE | 2023-12-16 07:41 | P.PNGS_ITS ---
Subjective Subjective Date of Service: 12/17/23 Interval history: Feels well. Mild incisional pain. She is tolerating phase 1 bariatric diet Physical Exam 2 Vital Signs: Vital Signs: Last Vital Signs Temp 98.0 F 12/16/23 06:23 Pulse 101 H 12/16/23 06:23 Resp 18 12/16/23 06:23 BP 142/82 H 12/16/23 06:23 Pulse Ox 100 12/16/23 06:23 O2 Del Method Room Air 12/16/23 06:23 BMI result Body Mass Index 48.4 GI: Inspection: Yes normal to inspection, Yes incision (clean, dry and intact) and Yes obesity Palpation (GI): Soft to palpation Extrem: Right lower extremity: normal to inspection (no calf tenderness) L eft lower extremity: normal to inspection (no calf tenderness) Objective Data Active Medications Albuterol Sulfate (Albuterol Sulfate (0.083%) 2.5 Mg/3 Ml Vial.Neb) 2.5 mg INHALE ONCE PRN PRN Reason: Wheezing Fentanyl (Fentanyl Citrate/Pf 100 Mcg/2 Ml Vial) 50 mcg IVPUSH Q5M PRN; Protocol PRN Reason: Pain, Moderate(Pain Scale 4-6) Hydromorphone HCl (Hydromorphone Hcl 0.5 Mg/0.5 Ml Syringe) 0.5 mg IVPUSH Q5M PRN; Protocol PRN Reason: Pain, Severe (Pain Scale 7-10) Lactated Ringer's (Lr) 1,000 mls @ 999 mls/hr IV .Q1H1M JALEN Stop: 12/16/23 08:15 Last Admin: 12/16/23 06:25 Dose: 999 mls/hr Documented By: ALIA Ondansetron HCl (Ondansetron Hcl 4 Mg/2 Ml Vial) 4 mg IVPUSH ONCE PRN PRN Reason: Nausea and Vomiting Labs 12/17/23 05:40 12/17/23 05:40 Labs: Laboratory Results - last 24 hr 12/11/23 12/15/23 12/16/23 09:45 12:33 06:00 Vitamin A 48 Urine Test NEGATIVE Zinc 82 Blood Type O Positive Antibody Screen NEGATIVE Procedures Date of Service Date of Service: 12/17/23 Progress Note: A&P Assessment and plan (1) Morbid obesity: Status: Acute Assessment and Plan: s/p laparoscopic sleeve gastrectomy and gastropexy Doing well Will check am labs and if OK the patient will be discharged home (2) Migraines: Status: Acute (3) Liver fibrosis: Status: Acute (4) Cholelithiasis: Status: Acute (5) S/P laparoscopic sleeve gastrectomy: Status: Acute Time Spent With Patient Time: Total time managing care of this patient today ____ minutes. Quality Stroke Does the patient have a stroke diagnosis?: No VTE Prior VTE?: No VTE Risk Level:: Surgical - moderate VTE Device Contraindication: N/A - Device Ordered VTE Drug Contraindication: Treatment Not Indicated
--- NOTE | 2023-12-16 08:32 | PHA.MEDREC ---
Pharmacy Consult ? Medication Reconciliation rn has completed the medication reconciliation, PHARMACY REVIEWED.
--- NOTE | 2023-12-16 10:40 | PM.DS ---
DS: Providers Provider Date of Service: 12/17/23 Date of admission: 12/16/23 06:03 Primary care physician: ANGELIQUE Story DS: Diagnosis Discharge Diagnosis (1) Morbid obesity: Status: Acute (2) Migraines: Status: Acute (3) Liver fibrosis: Status: Acute (4) Cholelithiasis: Status: Acute DS: Summary Hospital Course Hospital Course: ADMITTING DIAGNOSIS: morbid obesity, migraines DISCHARGE DIAGNOSIS: same, s/p laparoscopic sleeve gastrectomy PAST SURGICAL HISTORY: none PROCEDURE: upper endoscopy, laparoscopic sleeve gastrectomy DISCHARGE SUMMARY: History of Present Illness: The patient is a 28 year-old woman with a BMI of 50.4 kg/m2 and associated co-morbidities as described above. The patient had extensive work-up, lost 21 lbs preoperatively and was electively scheduled for laparoscopic, possible open sleeve gastrectomy and gastropexy. Risks and complications of the surgery were discussed with the patient in advance, particularly the possibility of , pulmonary embolism, anastomotic leak, bleeding, bowel injury, GERD, cardiac, renal or pulmonary complications. The patient understood all the risks and was in agreement with the surgical plan. Hospital Course: The patient underwent an uneventful laparoscopic sleeve gastrectomy with gastropexy on the day of admission. Postoperatively, the patient was transferred to the surgical floor. The patient received IV Acetaminophen and IV dilaudid for pain control. Patient was started on bariatric phase 1 diet POD #0. On postoperative day one, the patient was feeling well without nausea, vomiting, fevers, or tachycardia. The patient had some mild incisional pain and the abdomen was soft. On the morning of postoperative day one, the patient was continued on 1 ounce of water or ice every half hour. During the day, the patient did fairly well, having some incisional pain, but able to ambulate adequately and to tolerate liquids well. Since the patient is doing well, we decided that the patient was ready to be discharged. The patient was given instructions to follow-up with me next week and to call my office for any fever over 101, persistent abdominal pain, nausea, vomiting, GERD, symptoms of DVT such as calf tenderness, or leg swelling, or pulmonary embolism such as chest pain or shortness of breath. The patient was also instructed to drink 40-60 ounces of liquids per day using the 1-ounce cups. The patient had been given prescriptions for Tylenol for pain, Zofran prn for nausea, and pantoprazole and carafate previously. The patient was encouraged to ambulate and use the incentive spirometer. The patient was allowed to shower, but no baths, and encouraged to stay active at home. All of these instructions were given to the patient personally. All questions were answered and the patient understood all instructions, the instructions were also given to the patient in print. Time Attestation Discharge coordination time: Less than 30 minutes Quality: Safe Use of Opioids Does Pt have an Active Cancer Diagnosis on the Problem List?: No Quality: Stroke Does the patient have a stroke diagnosis?: No Physical Exam Vital Signs: Vital Signs: Last Vital Signs Temp 98.0 F 12/16/23 06:23 Pulse 101 H 12/16/23 06:23 Resp 18 12/16/23 06:23 BP 142/82 H 12/16/23 06:23 Pulse Ox 100 12/16/23 06:23 O2 Del Method Room Air 12/16/23 06:23 BMI result Body Mass Index 48.4 DS: Data Data Completed and Pending Pending studies at discharge: Pending at discharge 12/16/23 09:37 Surgical [PTH] Routine Labs on day of discharge: Laboratory Results - last 24 hr 12/11/23 12/15/23 12/16/23 09:45 12:33 06:00 Urine Test NEGATIVE Zinc 82 Blood Type O Positive Antibody Screen NEGATIVE Discharge Plan Discharge Anticipated Discharge Date/Time: 12/17/23 10:00 Patient Disposition: Home, Self-Care Discharge Diagnosis: s/p sleeve gastrectomy Referrals: oRc Lincoln FNP [Primary Care Provider] - 1 Week Discharge Medications: Continued topiramate 50 mg tablet 75 mg PO BID pantoprazole 40 mg tablet,delayed release (DR/EC) 40 mg PO DAILY Qty: 90 0RF sucralfate 100 mg/mL suspension 10 ml PO BID Qty: 600 2RF ondansetron 4 mg tablet,disintegrating 4 mg PO Q12H Qty: 20 0RF Rx Instructions: Only take one every 12 hours as needed if you have nausea Discontinued polyethylene glycol 3350 [Miralax] 17 gram powder in packet 17 g PO DAILY Qty: 14 0RF Rx Instructions: Mix each packet with 8oz of water, Crystal light, or Gatorade zero, or Propel and do 7 packets on 12/14/23 and another 7 packets on 12/15/23 Discharge Orders: Discharge Order (Routine); Ordered 12/17/23 Ordered By: Fabian Milton Activity on Discharge: No heavy lifting Stand Alone Forms: Patient Portal Discharge page Care Plan Goals: weight loss Health Concerns: morbid obesity Plan of Treatment: No tub baths, sex or returning to work until discussed at first post op appointment. No exercise, alcohol, tobacco or illegal drug use. Continue to use incentive spirometer hourly while awake. Walk in home for 5- 10 minutes every 2 hours during the first week. Continue phase 1 diet today and start phase 2 diet tomorrow morning. Follow all instructions in the bariatric handbook and call with any questions. 1. Please call your doctor or come back to the emergency room should any new symptoms arise. 2. You will receive a courtesy call from [facility] 24-48 hours after discharge. 3. Activity: abstain from alcohol, practice limited stair climbing, no bending, no driving, no exercise, no illicit substances, no lifting, no sex, no tub bath, no work. 4. Diet: continue as discussed with bariatric team.. 5. Dressing Change/Wound Care: Do not change or remove surgical dressings unless they are wet or soiled. 6. Call your doctor if: - Your temperature exceeds 101.5 F - You experience excessive pain or swelling - You have an unexpected reaction to medication - You have excessive bleeding - You experience continued vomiting/nausea - Your incision begins to separate - Your incision shows signs of infection such as increased redness, swelling, excessive pain, heat, or drainage (light blood or clear fluid is normal) 7. General instructions: No lifting greater than 5 lbs for 1 week and not more than 20lbs the next 3?weeks. No driving until seen at the office in 5-7 days after surgery. If you do not move your bowels in the next 2 days, please tell?Dr. Milton. Please walk around your home every hour or two to prevent blood clots from forming in your legs. You do not need to wake from sleeping to walk. Please sleep in a bed or couch to prevent kinking at the hips and knees. Please take your incentive spirometer (your lung security monitor) home with you and use it for the next few days to prevent pneumonia. You may shower, no hot tubs, baths or swimming pools.?Please follow the post op diet instructions you are?given by Dr Milton? and text me daily at 5-6pm for an update.?If you have any issues or concerns or questions please communicate this to him via text.? The Celebrate shakes have all of the bariatric vitamins you need if you consume these shakes. If you are drinking other protein shakes, you will need to purchase the Celebrate multivitamins and calcium that are available in the hospital gift shop on the first floor of the [facility].??Do not take anything without first discussing with Dr Milton. Please make sure you are consuming at least 40 ounces of fluids per day starting the?day AFTER your discharge from the hospital. Always drink 1-2 ml per minute using the 5ml?syringe. If you drink faster you may experience?bloating,?gas pain, burping, nausea or heartburn. In that case please slow down your pace and use the syringe to?understand better the?proper?pace and volume of drinking. Do not hesitate to contact the office with any questions at . The patient's medical history has been reviewed and they are considered low risk for post op DVT and therefore DVT prophylaxis is not considered necessary. Travel after surgery was reviewed. The patient has not disclosed any travel plans during the first 30 days after surgery and they have been advised that within the first 30 days after surgery any bus, plane, train or car travel over 2 hours in duration is contraindicated due to the possibility of developing blood clots from immobility. Any travel, needs to include periods of ambulation of 10 minutes in duration every 2 hours. The patient was instructed to discuss any plans for travel during this period with their bariatric surgeon. Assessment: stable post op sleeve gastrectomy Discharge Date/Time: 12/17/23 09:45
[2023-12-16 11:22] LABS: Hematocrit 37.2 % (37.0-47.0); Hemoglobin 12.5 g/dl (12.0-16.0)
[2023-12-16 11:40] LABS: Anion Gap 15 (12-20); Blood Urea Nitrogen 6 mg/dL (9-16); Calcium 8.8 mg/dL (8.4-10.2); Carbon Dioxide 20 mmol/L (22-29); Chloride 107 mmol/L (96-108); Creatinine Clr Calc Pharmacy 141.4; Estimated Glomerular Filt Rate > 60; Glucose Random 192 mg/dL (60-115); Potassium 3.5 mmol/L (3.3-5.1); Sodium 138 mmol/L (135-145)
[2023-12-16] MEDS: Lactated Ringers 1,000 ML 100 ML IVCONT (14:55)
[2023-12-16 16:03] LABS: Vitamin B1 9 nmol/L (8-30)
[2023-12-16] MEDS: ceFAZolin Sodium/Dextrose,Iso 2 GM/50 ML PIGGYBACK IV (16:14)
[2023-12-16] MEDS: Famotidine/PF 20 MG/2 ML VIAL IVPUSH ×2 (16:14→20:55)
[2023-12-16] MEDS: Acetaminophen 1,000 MG/100 ML PIGGYBACK 16.7 MG IV ×2 (16:21→22:02)
[2023-12-16] MEDS: 0.9 % Sodium Chloride Flush 3 ML SYRINGE IVFLUSH ×2 (16:22→20:55)
[2023-12-16] MEDS: Topiramate 25 MG TABLET 75 MG PO (20:56)
[2023-12-17] MEDS: Lactated Ringers 1,000 ML 100 ML IVCONT (00:10)
[2023-12-17 03:38] VITALS: BP 133/77; PULSE 65; RESP 18; TEMP 36.5; O2SAT 100
[2023-12-17] MEDS: Acetaminophen 1,000 MG/100 ML PIGGYBACK 16.7 MG IV (06:04)
[2023-12-17 06:28] LABS: MANUAL DIFF FLAG NO
[2023-12-17 06:54] LABS: Anion Gap 13 (12-20); Basophils Percent Auto 0.1 % (0-2); Blood Urea Nitrogen 6 mg/dL (9-16); Calcium 8.8 mg/dL (8.4-10.2); Carbon Dioxide 21 mmol/L (22-29); Chloride 111 mmol/L (96-108); Creatinine Clr Calc Pharmacy 169.4; Estimated Glomerular Filt Rate > 60; Glucose Random 111 mg/dL (60-115); Hematocrit 35.3 % (37.0-47.0); Hemoglobin 11.8 g/dl (12.0-16.0); Imm Gran Abs Auto 0.12 X10*3/uL (0.00-0.03); Imm Gran Pct Auto 0.6 % (0.0-0.4); Lymphocytes Absolute Auto 1.7 X10*3/uL (1.2-4.9); Lymphocytes Percent Auto 8.1 % (20-40); Mean Corpuscular HGB Conc 33.4 g/dl (31.0-35.0); Mean Corpuscular Hemoglobin 28.4 pg (27.0-33.0); Mean Corpuscular Volume 85.1 fL (80.0-98.0); Mean Platelet Volume 10.2 fL (9.4-12.3); Monocytes Absolute Auto 1.3 X10*3/uL (0.1-1.2); Monocytes Percent Auto 6.4 % (2-11); Neutrophils Absolute Auto 17.8 x10*3/uL (2.0-8.3); Neutrophils Percent Auto 84.8 % (45-73); Platelet Count 326 X10*3/uL (160-400); Potassium 4.7 mmol/L (3.3-5.1); Red Blood Count 4.15 X10*6/uL (4.20-5.50); Red Cell Distribution Width 13.8 % (11.0-16.0); Sodium 140 mmol/L (135-145)
[2023-12-17 07:42] VITALS: BP 161/91; PULSE 90; RESP 18; TEMP 36.2; O2SAT 100
[2023-12-17] MEDS: Topiramate 25 MG TABLET 75 MG PO (07:54)
[2023-12-17] MEDS: Famotidine/PF 20 MG/2 ML VIAL IVPUSH (07:54)
--- NOTE | 2023-12-17 09:00 | MHC.CM.PN ---
Patient is from home alone. Functionally independent. No services or DME. PCP: ANGELIQUE Story No HCP. CM provided education and offered assistance. Patient declines at this time and will consider completing with PCP. DP: Patient is medically cleared for dc home self care. Nephew will transport home at approx 10am.
--- NOTE | 2023-12-17 14:29 | HO.POSTANES ---
Post Anesthesia Evaluation Post Anesthesia Evaluation Date of Service: 12/17/23 Vital Signs: Vital Signs Temp Pulse Resp BP Pulse Ox O2 Del Method 12/17/23 07:42 97.2 F 90 18 161/91 H 100 Room Air 12/17/23 03:38 97.7 F 65 18 133/77 100 Room Air Anesthesia: General Endotracheal-GETA Mental Status: Awake Pain Control: Satisfactory Nausea/Vomiting: None Hydration: Adequate Anesthesia-Related Issues: No Anes. Related Issues
== END 2023-12-17 09:45 | disposition home or self-care (01) | DRG 621 ==
LOC: HO.SSSA 10:37 → HO.S3 10:52 → HO.SSSA 11:03 → HO.S3 14:58
PROVIDERS: Anesthesiology; Physician Assistant; Physician Assistant Surgical; Admitting Provider Surgery; PCP Nurse Practitioner Family; Visit Provider Surgery
PROC: 0DB64Z3 Excision of Stomach, Percutaneous Endoscopic Approach, Vertical (ICD-10-PCS; CPT 43845; principal; 2023-12-16 07:30)
DX: E66.01 Morbid (severe) obesity due to excess calories (principal); Z68.42 Body mass index [BMI] 45.0-49.9, adult; K21.9 Gastro-esophageal reflux disease without esophagitis; G43.909 Migraine, unspecified, not intractable, without status migrainosus; K80.20 Calculus of gallbladder without cholecystitis without obstruction; K74.00 Hepatic fibrosis, unspecified; Z79.899 Other long term (current) drug therapy
CPT/HCPCS: 36415; 80048; 80053; 80061; 81025; 82306; 82607; 82728; 82746; 83036; 83525; 83540; 84425; 84443; 84590; 84630; 85014; 85018; 85025; 86140; 86850; 86900; 86901; 88304; 88305; 88307; 88342; 99024; A4649; C9088; C9145; J0131; J0690; J1100; J1170; J2250; J2371; J2405; J2704; J2795; J3010; J7120

== ENCOUNTER → 2023-12-16 06:03 | Outpatient (BNV) | payer OTHER, SELFPAY | PROVIDERS: Admitting Provider Surgery; PCP Nurse Practitioner Family; Visit Provider Surgery | DX: E66.01 Morbid (severe) obesity due to excess calories (principal); Z90.3 Acquired absence of stomach [part of]; Z98.84 Bariatric surgery status | CPT/HCPCS: 43659; 43775; 99024 ==

== ENCOUNTER 2023-12-25 12:29 | Outpatient (AMB) | payer OTHER, SELFPAY ==
--- NOTE | 2023-12-25 10:37 | A.OFFVIS_ITS ---
Intake VS Expanded 12/25/23 12:37 BP 141/82 H Blood Pressure Location Rt brachial Blood Pressure Position Sitting Pulse 86 Pulse Source Pulse Oximeter Temp 96.6 F L Temperature Source Tympanic Pulse Oximetry 97 Oxygen Delivery Method Room Air Height 5 ft 9 in Weight 311 lb 12.8 oz BMI 46.0 Body Fat % 47.8 Body Fat Mass 149.0 Fat Free Mass 162.8 Visceral Fat Rating 14.0 Body Water % 37.4 Body Water Mass 116.6 Muscle Mass/Score 154.6 Basal Metabolic Rate/Score 2,364 Intake Visit Reasons: (OV) PO LSG 12/16/23 Allergies No Known Allergies Allergy (Verified 12/25/23 12:45) Medication List - Last Reconciled 12/25/23 by Mary Ly PA-C ondansetron 4 mg PO Q12H pantoprazole 40 mg PO DAILY sucralfate 10 mL PO BID topiramate 75 mg PO BID HPI HPI Comments History of Present Illness Details 28 yo female is POD 9 s/p LSG with Dr Garcia. No n/v/abd pain or reflux. She watched the post op video today. 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 Pre op weight of 317 lbs. She states surgical dressing started to come off so she removed all dressings and steri strips a few days ago . Started working FT 4 days ago. Meal plan per Dr Garcia: patient was not sure how many scoops of powder she used in each shake - checked her text messages. 10 am - 4:1 2 scoops with 8 oz UAM - dri nks over 30 minutes 1pm- same shake 4pm - Rebuild shake 2 sccops with 8 oz U AM Exercise - treadmill daily every morning 45 minutes speed 1.3, unknown calories burned Grow with Delaney - walking videos for 30 - 45 minutes every evening PFSH Medical History (Updated 12/20/23 @ 00:02 by Andrzej Gutierrez) Cholelithiasis Nexplanon in place Migraines Morbid obesity Surgical History (Updated 12/25/23 @ 12:46 by Katelin Betancourt CMA) Hx of laparoscopic partial gastrectomy Social History Household Members: None Housing: Apartment Are you a primary personal care home administrator to a significant other at home: No Do you presently have visiting nurse or other home services: No Patient Tobacco Use Status: Never used Tobacco Physical Exam Vital Signs: Last Vital Signs Temp 96.6 F L 12/25/23 12:37 Pulse 86 12/25/23 12:37 BP 141/82 H 12/25/23 12:37 Pulse Ox 97 12/25/23 12:37 Oxygen Delivery Method Room Air 12/25/23 12:37 BMI result Body Mass Index 46.0 Const General: cooperative, healthy appearing and no acute distress GI Inspection: Yes incision (c/d/i - undressed) and Yes Abdominal panniculus present Palpation (GI): Soft to palpation, nontender and no guarding Assessment & Plan Assessment & Plan (1) S/P laparoscopic sleeve gastrectomy: Code(s): Z98.84 - Bariatric surgery status Plan: Pt is POD 9 from LSG, all surgical dressings and steri strips were removed when she came in today. She will continue to follow meal and exercise plans per Dr Garcia, and communicate with him. We discussed that she needs to know the amount of scoops etc.. She MUST drink slower - 2 hours per shake Continue pantoprazole q am and sucralfate bid Shower and pat dry Increase treadmill to speed of 3, record caloreis burned should be at least 250 daily and report to Dr Garcia. Next appt in 3 weeks with me. Message sent to Dr Garcia about today's appt. Coding Level of Care Code Global (45670) Diagnoses S/P laparoscopic sleeve gastrectomy Z98.84
[2023-12-25 12:37] VITALS: BP 141/82; PULSE 86; TEMP 35.9; O2SAT 97; BMI 46.0
== END 2023-12-25 13:27 | disposition home or self-care (01) ==
PROVIDERS: PCP Nurse Practitioner Family; Visit Provider Physician Assistant
DX: Z98.84 Bariatric surgery status (principal)
CPT/HCPCS: 99024

== ENCOUNTER → 2023-12-25 12:29 | Outpatient (BNVA) | payer OTHER, SELFPAY | PROVIDERS: PCP Nurse Practitioner Family; Visit Provider Physician Assistant ==

== ENCOUNTER 2024-01-15 10:30 | Outpatient (AMB) | payer OTHER, SELFPAY ==
--- NOTE | 2024-01-15 10:17 | MHC.OFFVISWM ---
Intake VS Expanded 01/15/24 10:36 BP 135/70 Blood Pressure Location Rt brachial Blood Pressure Position Sitting Pulse 83 Pulse Source Pulse Oximeter Temp 96.7 F L Temperature Source Temporal Artery Scan Pulse Oximetry 100 Oxygen Delivery Method Room Air Height 5 ft 9 in Weight 303 lb 12.8 oz BMI 44.9 Body Fat % 46.8 Body Fat Mass 142.2 Fat Free Mass 161.6 Visceral Fat Rating 13.0 Body Water % 38.2 Body Water Mass 116.0 Muscle Mass/Score 153.4 Basal Metabolic Rate/Score 2,337 Intake Visit Reasons: (OV) PO LSG 12/16/23 Allergies No Known Allergies Allergy (Verified 01/15/24 10:38) Medication List - Last Reconciled 01/15/24 by Mary Ly PA-C fondaparinux 2.5 mg (0.5 mL) subcut Q24H pantoprazole 40 mg PO DAILY sucralfate 10 mL PO BID topiramate 75 mg PO BID HPI HPI Comments History of Present Illness Details 28 yo woman is now 4 weeks s/p LSG Dr Garcia, 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 Weight was 311.8 on 12/25/23. TBWL is 37.6 lbs or 11%. 8 lbs weight loss over 3 weeks. No n.v.abd pain or reflux. Pt is leaving on a trip on 01/16/[address] to [place] and Dr Garcia has ordered Arixtra injections to start tomorrow for 3 days only. Returns on January 24, will contact Dr Garcia on January 25. Meal plan: will not change meal plan while away 9am - 4:1 shake 2 scoops UAM over 2 hours for all 12pm- same shake 4pm - Rebuild 2 scoops 7pm - Celebrate bar Exercise - treadmill - speed 3.0, no incline - 350 calories 6 days/ week. Grow with Delaney or Meseret SALAS [facility] - 6 d/week. Has [place]. [facility] Medical History (Updated 01/13/24 @ 18:44 by Fabian Milton MD) Cholelithiasis Nexplanon in place Migraines Morbid obesity Surgical History Hx of laparoscopic partial gastrectomy Social History Household Members: None Housing: Apartment Are you a primary insurance healthcare consultant to a significant other at home: No Do you presently have visiting nurse or other home services: No Patient Tobacco Use Status: Never used Tobacco Physical Exam GI Inspection: Yes incision (all healing well) and Yes Abdominal panniculus present Palpation (GI): Soft to palpation, nontender and no guarding Assessment & Plan Assessment & Plan (1) S/P laparoscopic sleeve gastrectomy: Code(s): Z98.84 - Bariatric surgery status Plan: 4 weeks post op LSG , meal and exercise plans per Dr Garcia. Will call her pharmacy today to make sure she can get the Arixtra for tomorrow. Will let us know if she has trouble obtaining the medication. No changes today other than use incline 2- 6 on treadmill while on vacation. Next appt with Claudia in 4-5 weeks. Coding Level of Care Code Global (18648) Diagnoses S/P laparoscopic sleeve gastrectomy Z98.84
[2024-01-15 10:36] VITALS: BP 135/70; PULSE 83; TEMP 35.9; O2SAT 100; BMI 44.9
== END 2024-01-15 10:55 | disposition home or self-care (01) ==
PROVIDERS: PCP Nurse Practitioner Family; Visit Provider Physician Assistant
DX: Z98.84 Bariatric surgery status (principal)
CPT/HCPCS: 99024

== ENCOUNTER → 2024-01-15 10:30 | Outpatient (BNVA) | payer OTHER, SELFPAY | PROVIDERS: PCP Nurse Practitioner Family; Visit Provider Physician Assistant ==